=== PATIENT | female | born 1975 | race Caucasian/White ===

== ENCOUNTER 2025-03-04 09:15 | Outpatient (AMB) | payer OTHER, SELFPAY ==
[2025-03-04 09:30] VITALS: BP 118/82; PULSE 75; RESP 16; TEMP 36.8; O2SAT 100; BMI 26.3
--- NOTE | 2025-03-04 09:30 | AM.OFFWIN_ITS ---
Intake Vital Signs 03/04/25 09:30 Height 5 ft 4 in Weight 153 lb BMI 26.3 BP 118/82 Blood Pressure Location Lt brachial Position Sitting Respiration 16 Pulse 75 Pulse Source Pulse Oximeter Temp 98.3 F Temp Source Oral Pulse Oximetry (%) 100 Oxygen Delivery Method Room Air Intake Visit Reasons: EP-lt ear block Intake Note: Pt is here today c/o Lt ear block Allergies No Known Allergies Allergy (Verified 03/04/25 09:43) HPI HPI Comments History of Present Illness Details History of Present Illness - The patient is a 50-year-old female pr esenting with a sensation of blockage in the left ear x 3 days. - The patient associates the blockage se nsation with her routine of wetting her hair under a faucet daily, suspecting water build-up as a potential cause. - The blocked ear has impaired her heari ng to some degree compared to normal, with a noted awareness of reduced auditory perception on the left side. - The patient has attempted symptom юлия viation by self-administering pharmacy- bought medication aimed at drying out congestion, which was found to be unrelated to the issue of external ear wax. Treatment involved six doses of sudafed yesterday and 2 doses this morning, though it was clarified this would not affect the wax. Physical Exam General: Cooperative, healthy appearing, comfortable, no acute distress and well developed Orientation: Patient oriented x3 Limitations: No limitations Head: Normal to inspection Ears: Left EAC cerumen impaction, right EAC and TM normal Nose: Normal External nose present Face and sinus: Normal facial exam Eyes: Appearance normal, both eyes and all related structures Neck: Normal visual inspection and Yes full ROM Respiratory: Normal respiratory effort and able to speak in complete sentences. Skin: No rashes or lesions noted Neuro: Patient oriented x3 Extremities: Normal to inspection Review of Systems Const All systems reviewed & are unremarkable except as noted in HPI and below Physical Exam Vital Signs: Last Vital Signs Temp 98.3 F 03/04/25 09:30 Pulse 75 03/04/25 09:30 Resp 16 03/04/25 09:30 BP 118/82 03/04/25 09:30 Pulse Ox 100 03/04/25 09:30 Oxygen Delivery Method Room Air 03/04/25 09:30 BMI result Body Mass Index 26.3 Office Procedures Cerumen Removal From which ear canal was the cerumen removed: left Removal: irrigation Notes: patient tolerated procedure well, no complications and ear canal clear 00599-Wod Irrigation/Lavage Assessment & Plan Assessment & Plan (1) Left ear impacted cerumen: Code(s): H61.22 - Impacted cerumen, left ear Plan: Impacted cerumen in the left ear was identified and will be treated with a saline flushing procedure. The patient was informed about potential temporary dizziness during the irrigation and advised to communicate any discomfort. Additionally, the use of cerumenolytic drops, such as Debrox, was discussed as an option for future management and prevention. The patient is informed about the difference between managing earwax and inner ear congestion to ensure accurate self-care in the future. The patient understands the rationale for the treatment plan and alternatives provided. Patient was informed and verbally consented to the use of an ambient scribe for clinic note documentation during this visit. (2) Left acute otitis media: Code(s): H66.92 - Otitis media, unspecified, left ear Plan: After the cerumen was cleared, it was evident she had a left otitis media with erythema, inflammation and lots of landmarks on the left TM. Send prescription for amoxicillin to her pharmacy for 5 days. Medications: New amoxicillin 875 mg PO Q12H 10 tabs 0RF Coding Level of Care Code New Pt Level 4 (96801) Diagnoses Left ear impacted cerumen H61.22 Left acute otitis media H66.92 CPT Codes Office Procedure - CPT: 91124-Tyu Irrigation/Lavage ([id number])
== END 2025-03-04 10:47 | disposition home or self-care (01) ==
PROVIDERS: Visit Provider Physician Assistant
DX: H66.92 Otitis media, unspecified, left ear (principal); H61.22 Impacted cerumen, left ear

== ENCOUNTER → 2025-03-04 09:15 | Outpatient (BNVA) | payer OTHER, SELFPAY | PROVIDERS: Visit Provider Physician Assistant | DX: H61.22 Impacted cerumen, left ear (principal); H66.92 Otitis media, unspecified, left ear | CPT/HCPCS: 69209 ==

== ENCOUNTER 2025-07-17 15:04 | Outpatient (AMB) | payer OTHER, SELFPAY ==
--- NOTE | 2025-07-17 15:16 | A.OFFVIS_ITS ---
Vital Signs 07/17/25 15:17 Height 5 ft 4 in Weight 153 lb BMI 26.3 Intake Visit Reasons: Osorio. Bunio, Hammer toe, calluses Intake Note: Britney is a 50 year old female who presents today as a new patient for an evaluation of her bilateral bunions, hammertoes, and callouses and in grown toenails. Patient reports she is currently experiencing bilateral pain on her medial and lateral border of her hallux and in her heels. She mentions her pain has been going on for over 10 years. She states she used to see a residential assistant is [facility] where she was being treated for her in growns. She would like to get her nails trimmed today if possible . Allergies No Known Allergies Allergy (Verified 07/17/25 15:17) HPI Comments Details: The patient is a 50-year-old female with a PMH as seen below presenting with B/L foot pain, thickened lesions, thickened and dystrophic toenails, bunions, and hammertoes. The patient reports having ingrown toenails on both halluces, which have been a persistent issue since she can remember. She has previously undergone partial nail avulsions with chemical treatment at [facility] and another residential assistant in [place], [place], but the problem persists. The ingrown toenails cause significant pain when too thickened or elongated, affecting her sleep and daily activities, especially due to her frequent walking. The patient also suffers from calluses, which have been present for a long time and are exacerbated by her walking or pressure to the lesions. Bunions and hammertoes have been noted, with the patient reporting a history of wearing inappropriate footwear in her youth, contributing to these conditions. She has tried orthotics but found the shoe brand Barefoot more comfortable, which she believes have helped reduce her symptoms. The patient experiences heel pain which is aggravated by extensive walking. She has not been taken any medication for the pain but tries to massage the feet to alleviate discomfort. 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 She denies any recent pedal injuries. She denies any other pedal concerns. Denies any N/V/F/C. [facility] Medical History (Updated 07/18/25 @ 19:24 by MANSOOR Preciado Collapsed arches Other enthesopathy of ankle and tarsus Calcaneal spur of both feet Plantar fasciitis, bilateral Tinea unguium Nail dystrophy Intractable plantar keratosis Other specified epidermal thickening Pain in both feet Hammertoe, bilateral Hallux abducto valgus, bilateral Review of Systems Const Details: - Integumentary: Reports frequent ingrown toenails and calluses. Denies recent injuries despite a persistent bruise on the right heel. - Musculoskeletal: Reports bunions, hammertoes, and heel pain. - Neurological: Reports hyperhidrosis affecting feet, hands, and underarms. All systems reviewed & are unremarkable except as noted in HPI and below Physical Exam Vital Signs: BMI result Body Mass Index 26.3 Extrem Other: B/L LE Focused Physical Exam: Derm: Hyperkeratotic lesions noted to the plantar aspects bilaterally along the ball of the feet and heels. Thickened, dystrophic, and elongated toenails x10 with minimal subungual debris noted. Mild incurvation noted to B/L nail borders of B/L hallucal nails. Mild edema noted to the medial prominences of the 1st metatarsals B/L. No open lesions, abrasions, or wounds noted. No ecchymosis or discoloration noted. No clinical signs of infection. Skin supple and turgor intact. Vasc: DP/PT pulses palpable. CFT <3 secs. Temp gradient warm to warm. Pedal hair absent. No varicosities noted. Neuro: Protective sensations grossly intact. MSK: Pain on palpation to hyperkeratotic lesions. Mild pain on palpation to B/L nail borders of B/L hallucal nails. Rigid HAV noted B/L with hammer toes to toes 2-5. Overlapping noted to toes 1 and 2 bilaterally. Limited ROM of forefoot due to deviation of toes. Pain on palpation to the heels in the area of the medial and central calcaneal tubercles radiating along the arches. ROM of the ankles and hindfoot WNL. Pes cavus at rest with collapsed arches upon weightbearing. Antalgic gait noted unassisted. Office Procedures AMB Debridement/Avulsion Podia Details: Debrided the hyperkeratotic lesions B/L using a #15 blade with no incidents. Debrided toenails x10 using a sterile nail nipper with no incidents. 66795-Zaoyfwtfbrx of Nail 6+ 91117-Bdehapyntsy of Callus (5+) Procedure code (CPT) selection complete Results Reviewed Results Reviewed: Ordered B/L foot 3 views weightbearing xrays to be performed prior to next visit. Assessment & Plan Assessment & Plan (1) Other specified epidermal thickening: Code(s): L85.8 - Other specified epidermal thickening Category: Medical (2) Intractable plantar keratosis: Code(s): L84 - Corns and callosities Category: Medical (3) Nail dystrophy: Code(s): L60.3 - Nail dystrophy Category: Medical (4) Tinea unguium: Code(s): B35.1 - Tinea unguium Category: Medical (5) Plantar fasciitis, bilateral: Code(s): M72.2 - Plantar fascial fibromatosis Category: Medical (6) Calcaneal spur of both feet: Code(s): M77.31 - Calcaneal spur, right foot; M77.32 - Calcaneal spur, left foot Category: Medical (7) Other enthesopathy of ankle and tarsus: Code(s): M77.50 - Other enthesopathy of unspecified foot and ankle Category: Medical (8) Hallux abducto valgus, bilateral: Code(s): M20.11 - Hallux valgus (acquired), right foot; M20.12 - Hallux valgus (acquired), left foot Category: Medical (9) Hammertoe, bilateral: Code(s): M20.41 - Other hammer toe(s) (acquired), right foot; M20.42 - Other hammer toe(s) (acquired), left foot Category: Medical (10) Pain in both feet: Code(s): M79.671 - Pain in right foot; M79.672 - Pain in left foot Category: Medical (11) Collapsed arches: Code(s): M21.40 - Flat foot [pes planus] (acquired), unspecified foot Category: Medical Qualifiers: Laterality: bilateral Qualified Code(s): M21.41 - Flat foot [pes planus] (acquired), right foot; M21.42 - Flat foot [pes planus] (acquired), left foot Plan Patient was informed and verbally consented to the use of an ambient scribe for clinic note documentation during this visit. I discussed with the patient the management of her foot conditions, including the potential need for partial nail avulsion with chemical treatment for her recurrent ingrown toenails if she experiences continued to pain to nail borders. We reviewed the use of Epsom salt soaks for recurrent ingrown nails and emollients for callus management and the importance of proper footwear to reduce bunion and hammertoe symptoms. I explained the role of stretching exercises in m anaging plantar fasciitis and advised obtaining x-rays to assess foot structure for potential surgical intervention. Recommended toe sleeves and bunion sleeves. - Continue soaking feet in Epsom salt and warm water to alleviate mild ingrown toenails and prepare for potential partial nail avulsion. - Apply Vaseline or a thick cream to areas of hyperkeratotic lesiosn to slow their recurrence. - Consider using bunion and toe sleeves to reduce pressure and irritation from footwear. - Perform stretching exercises to manage plantar fasciitis and alleviate heel pain (provided patient with instructional form) - Obtain x-rays to evaluate foot structure and determine appropriate surgical options if necessary. Patient is to follow-up in one week to reassess symptoms and possibly perform PNAs if needed. Orders: Orders XR Foot Osorio 3V Today M20.11 - Hallux valgus (acquired), right foot, M20.12 - Hallux valgus (acquired), left foot, M20.41 - Other hammer toe(s) (acquired), right foot, M20.42 - Other hammer toe(s) (acquired), left foot, M79.671 - Pain in right foot, M79.672 - Pain in left foot AMB Debridement/Avulsion Podiatry 07/17/25 B35.1 - Tinea unguium, L60.3 - Nail dystrophy, L84 - Corns and callosities, L85.8 - Other specified epidermal thickening Coding Level of Care Code New Pt Level 4 (64723) Diagnoses Other specified epidermal thickening L85.8 Intractable plantar keratosis L84 Nail dystrophy L60.3 Tinea unguium B35.1 Plantar fasciitis, bilateral M72.2 Calcaneal spur of both feet M77.31; M77.32 Other enthesopathy of ankle and tarsus M77.50 Hallux abducto valgus, bilateral M20.11; M20.12 Hammertoe, bilateral M20.41; M20.42 Pain in both feet M79.671; M79.672 Pes planus of both feet M21.41; M21.42 Laterality: bilateral CPT Codes Skin Debridement - CPT: 12200-Xlupqmxzuxs of Nail 6+ ([id number]) Skin Debridement - CPT: 12456-Srgtfkzmvqk of Callus (5+) ([id number]) Time Spent (min) 75
[2025-07-17 15:17] VITALS: BMI 26.3
--- OUTSIDE RECORDS SUMMARY | 2025-07-17 17:10 | XMS_ITS | Encounter Summary ---
Author Organization [facility] Address [address] [place] [address] [place] [phone] Phone Care Team Providers Care Naval Engineer Name Role Phone Patsy Lee CNNegrita Unavailable [phone] Self-Referred, Patient Unavailable Unavailab Vero Moraes MD Primary Care Provider Sofia Seals Primary Care Provider Pcp, Not Required Primary Care Provider Unavaila ble Sofia Seals Primary Care Provider Encounter Details Date Type Department Care Team (Latest Contact Info) Description 05/21/2018 Transcribe Orders [facility] [address] [place] [address] Sole Bunn PA [address] 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 Not on sina e Not on file documented as of this encounter Plan of Treatment Upcoming Encounters Date Type Department Care Team (Late st Contact Info) Description 09/22/2025 1:30 PM EST Office Visit [facility] [address] [place] [address] Patsy Lee CNM [address], [address] [place] [address] [email or web address] 08/13/2026 2:00 PM EDT Office Visit [facility] [address] [place] [address] Sofia Seals [address] [place] [address] [email or web address] documented as of this encounter Results * (ABNORMAL) Urinalysis with sediment (05/21/2018 4:24 PM EDT) WBC 0-4(A) NONE SEEN /hpf [facility] RBC 6-10(A) NONE SEEN /hpf [facility] URINE EPITHELIAL 0-4(A) NONE SEEN [facility] MUCUS Trace(A) NONE SEEN /hpf [facility] BACTERIA Trace(A) NONE SEEN [facility] COLOR Yellow Yellow [facility] CLARITY Clear [facility] GLUCOSE Negative Negative [facility] BILI Negative Negative [facility] KETONES Negative Negative [facility] SPECIFIC GRAVITY <1.005 1.005 - 1.030 [facility] BLOOD 1+(A) Negative [facility] PH 6.0 5.0 - 8.0 [facility] Protein-UA Negative Negative [facility] NITRITE Negative Negative [facility] Leukocyte esterase, ur Trace(A) Negative [facility] Urine (Urine) 05/21/2018 4:2 4 PM EDT 05/21/2018 4:32 PM EDT us Sole KWONG URINE ORDERABLES Final Result [facility] [address] [place] [address] documented in this encounter Visit Diagnoses Diagnosis Microhematuria- Primary documented in this encounter Care Teams Naval Engineer Relationship Specialty Start Date End Date Vero Garcia MD [address] [place] [address] [email or web address] PCP - General Internal Medicine 05/07/18 01/22/25 Sofia Seals [address] [place] [address], [address] [place] [address] PCP - General Family Medicine 01/23/25 01/23/25 Pcp, Not Required [address] [place] [id number] PCP - General 05/17/25 05/31/25 Sofia Seals [address] [place] [address], [address] [place] [address] PCP - General Family Medicine 06/01/25 Patsy Lee CNM [address] [place] [address], [address] [place] [address] Obstetrics and Gynecology 10/09/17 Self-Referred, Patient 10/09/17 documented as of this encounter Additional Source Comments The information contained in this document represents components of the legal health record. It is not the complete legal health record.[facility]
--- OUTSIDE RECORDS SUMMARY | 2025-07-17 17:10 | XMS_ITS | Encounter Summary ---
Author Organization [facility] Address [address] [place] [address] [place] [address] Phone Care Team Providers Care Welding Machine Operator/Tender Name Role Phone Patsy Lee CNNegrita Unavailable Self-Referred, Patient Unavailable Unavailab Vero Moraes MD Primary Care Provider [phone] Sofia Seals Primary Care Provider Pcp, Not Required Primary Care Provider Unavaila ble Sofia Seals Primary Care Provider Encounter Details Date Type Department Care Team (Latest Contact Info) Description 05/07/2018 Transcribe Orders [facility] Laboratory [address] [place] [address] Sole Bunn PA [address] [place] [address] [email or web address] Routine general medical examination at a health care facility (Primary Dx); Migraine without status migrainosus, not intractable, unspecified migraine type; Fatigue, unspecified type Social History Tobacco Use Types Packs/Day Years [...] Industry Job Start Date Job End Date [place] at [employer] Not on file Not on sina e Not on file documented as of this encounter Plan of Treatment Upcoming Encounters Date Type Department Care Team (Late st Contact Info) Description 09/22/2025 1:30 PM EST Office Visit [facility] [address] [place] [address] Patsy Lee, SADIE [address] [facility], [address] [place] [address] [email or web address] 08/13/2026 2:00 PM EDT Office Visit [facility] Family Medicine [address] [place] [address] Sofia Seals [address] [facility], [address] [place] [address] [email or web address] documented as of this encounter Results * (ABNORMAL) Urinalysis with sediment (05/07/2018 7:35 AM EDT) WBC 5-10(A) NONE SEEN /hpf [facility] RBC 3-5(A) NONE SEEN /hpf [facility] URINE EPITHELIAL 21-49(A) NONE SEEN [facility] MUCUS 2+(A) NONE SEEN /hpf [facility] BACTERIA 1+(A) NONE SEEN [facility] CRYSTALS 2+ [facility] Comment:AMORPHOUS COLOR Yellow Yellow [facility] CLARITY Clear [facility] GLUCOSE Negative Negative [facility] BILI Negative Negative [facility] KETONES Trace(A) Negative [facility] SPECIFIC GRAVITY 1.025 1.005 - 1.030 [facility] BLOOD 3+(A) Negative [facility] PH 6.0 5.0 - 8.0 [facility] Protein-UA 1+(A) Negative [facility] NITRITE Negative Negative [facility] Leukocyte esterase, ur 1+(A) Negative [facility] Urine (Urine) 05/07/2018 7:3 5 AM EDT 05/07/2018 7:38 AM EDT us Sole KWONG URINE ORDERABLES Final Result Performing Organization Address City/[facility]/ZIP Co de Phone Number [address] [address] * TSH with reflex (05/07/2018 7:35 AM EDT) TSH 1.34 0.27 - 4.20 uIU/mL [facility] Blood 05/07/2018 7:35 AM EDT 05/07/2018 7:37 AM EDT us Sole KWONG LAB BLOOD ORDERABLES Final Resu lt Performing Organization Address [facility] Co de Phone Number [address] [address] * (ABNORMAL) Lipid panel (05/07/2018 7:35 AM EDT) HDL 75 mg/dL [facility] Comment: Interpretation: Risk Level Females Decreased >55mg/dL Average 50-55 mg/dL Increased <50 mg/dL CHOLESTEROL 200 0 - 240 mg/dL [facility] TRIGLYCERIDES 109 30 - 160 mg/dL [facility] LDL 103 50 - 129 mg/dL [facility] Comment: LDL levels in terms of risk for coronary heart disease: <100 mg/dL: Optimal 100-129 mg/dL: Near or above optimal 130-159 mg/dL: Borderline high 160-189 mg/dL: High >190 mg/dL: Very High CARDIAC RISK RATIO 2.7(L) 3.3 - 4.4 C [facility] Blood 05/07/2018 7:35 AM EDT 05/07/2018 7:37 AM EDT Sole KWONG LAB BLOOD ORDERABLES Final Resu lt Performing Organization Address City/[facility]/ZIP Co de Phone Number [address] [address] * Comprehensive metabolic panel (05/07/2018 7:35 AM EDT) SODIUM 140 133 - 146 mmol/L [facility] POTASSIUM 3.8 3.3 - 5.1 mmol/L [facility] CHLORIDE 100 96 - 108 mmol/L [facility] CO2 28 21 - 35 mmol/L [facility] BUN 10 6 - 19 mg/dL [facility] CREATININE 0.50 0.5 - 1.5 mg/dL [facility] GLUCOSE 82 70 - 99 mg/dL [facility] ALBUMIN 4.4 3.9 - 4.8 g/dL [facility] TOTAL PROTEIN 7.7 6.5 - 8.0 g/dL [facility] CALCIUM 9.6 8.4 - 10.3 mg/dL [facility] ALKALINE PHOSPHATASE 52 39 - 117 U/L [facility] TOTAL BILIRUBIN 0.5 0.0 - 1.2 mg/dL [facility] AST 17 0 - 37 U/L [facility] ALT 17 0 - 40 U/L [facility] GLOBULIN 3.3 1 - 4.8 g/dL [facility] EGFR 119 >59 mL/min/1.7 3m2 [facility] Comment:If patient is black, multiply result by 1.159. Estimated glomerular filtration rate calculated using the CKD-EPI equation. ANION GAP 16 10 - 20 mmol/L [facility] Blood 05/07/2018 7:35 AM EDT 05/07/2018 7:37 AM EDT us Sole KWONG LAB BLOOD ORDERABLES Final Resu lt [facility] [address] [place] [address] * (ABNORMAL) CBC and differential (05/07/2018 7:35 AM EDT) WBC 10.08 3.40 - 11.20 K/uL [facility] RBC 4.58 3.80 - 4.80 M/uL [facility] HGB 14.4 12.0 - 15.0 g/dL [facility] HCT 43.2 36.0 - 46.0 % [facility] PLT 217 130 - 400 K/uL [facility] MCV 94.3 79.0 - 98.0 fL [facility] MCH 31.4 27.0 - 34.8 pg [facility] MCHC 33.3 31.5 - 36.0 g/dL [facility] RDW 12.4 10.8 - 14.6 % [facility] MPV 10.4 9.4 - 12.4 fl [facility] NRBC 0.00 /100 WBCs [facility] ABSOLUTE NRBC 0.00 K/uL [facility] DIFF METHOD Auto [facility] NEUTS 61.9 45.30 - 77.70 % [facility] LYMPHS 28.9 12.30 - 39.70 % [facility] MONOS 7.2 4.10 - 12.80 % [facility] EOS 1.4 0 - 7.2 % [facility] BASOS 0.3 0 - 2.80 % [facility] Granulocytes, immature (%) 0.3 0.0 - 0.9 % [facility] ABSOLUTE NEUTS 6.24 1.40 - 7.70 K/uL [facility] ABSOLUTE LYMPHS 2.91 0.60 - 3.20 K/uL [facility] ABSOLUTE MONOS 0.73(H) 0.11 - 0.59 K/uL [facility] ABSOLUTE EOS 0.14 0.01 - 0.50 K/uL [facility] ABSOLUTE BASOS 0.03 0.00 - 0.08 K/uL [facility] Granulocytes, immature 0.03 0.00 - 0.05 K/uL [facility] Blood 05/07/2018 7:35 AM EDT 05/07/2018 7:37 AM EDT us Sole KWONG LAB BLOOD ORDERABLES Final Resu lt [facility] [address] [place] [address] documented in this encounter Visit Diagnoses Diagnosis Routine general medical examination at a health care facility- Primary Migraine without status migrainosus, not intractable, unspecified migraine type Fatigue, unspecified type documented in this encounter Care Teams Welding Machine Operator/Tender Relationship Specialty Start Date End Date Vero Garcia MD [address] [place] [address] [email or web address] PCP - General Internal Medicine 05/07/18 01/22/25 Sofia Seals [address] [place] [address], [address] [place] [address] [email or web address] PCP - General Family Medicine 01/23/25 01/23/25 Pcp, Not Required [address] [place] [address] PCP - General 05/17/25 05/31/25 Sofia Seals [address] [place] [address], [address] [place] [address] [email or web address] PCP - General Family Medicine 06/01/25 Patsy Lee CNM [address] [place] [address], [address] [place] [address] [email or web address] Obstetrics and Gynecology 10/09/17 Self-Referred, Patient 10/09/17 documented as of this encounter Additional Source Comments The information contained in this document represents components of the legal health record. It is not the complete legal health record.[facility]
--- OUTSIDE RECORDS SUMMARY | 2025-07-17 17:11 | XMS_ITS | Encounter Summary ---
Author Organization [facility] Address [address] [place] [address] Phone Care Team Providers Care Laborer Steel Handling Name Role Phone Patsy Lee CNNegrita Unavailable [phone] Self-Referred, Patient Unavailable Unavailab Vero Moraes MD Primary Care Provider [phone] Sofia Seals Primary Care Provider Pcp, Not Required Primary Care Provider Unavaila Sofia May Primary Care Provider Encounter Details Date Type Department Care Team (Late st Contact Info) Description 09/03/2020 Ancillary Orders Virtual Department [address] [place] [address] Vero Garcia MD [address] [place] [address] [email or web address] Breast screening Social History Tobacco Use Types Packs/Day Years Used Date Smoking Tobacco: Never Smokeless Tobacco: Never Alcohol Use Standard Drinks/Week Comments Yes 0 (1 standard drink = 0.6 oz pur e alcohol) rare Comments No Sex and Gender Information Value Date Recorded Sex Assigned at Female 10/26/2017 9:35 AM EST Legal Sex Female 4:37 PM EST Gender Identity Female 10/26/2017 9:35 AM EST Sexual Orientation Straight 10/26/2017 9: 35 AM EST Occupation Industry Job Start Date Job End Date [employer] Not on file Not on file Not on fi le documented as of this encounter Plan of Treatment Upcoming Encounters Date Type Department Care Team (Late st Contact Info) Description 09/22/2025 1:30 PM EST Office Visit [facility] [address] [place] [address] Patsy Lee CNM 22 [facility], [address] [place] [address] 08/13/2026 2:00 PM EDT Office Visit [facility] [place] [facility] [address] [place] [address] Sofia Seals 22 [facility], [address] [place] [address] [email or web address] documented as of this encounter Results * BI MAMMOGRAM SCREENING WITH TOMOSYNTHESIS WITH CAD (BILATERAL) (11/16/2020 4:24 PM EST) Anatomical Region Laterality Modality Breast Left, Breast Right, Breast Bilateral Bila teral Mammography 11/16/2020 7:01 PM EST Impressions 11/16/2020 7:03 PM EST BILATERAL BREASTS: Negative, no evidence of malignancy. Normal interval follow- up is recommended in 12 months. Bi-RADS: BI-RADS CATEGORY: 1 - Negative. DENSITY: There are scattered fibroglandular densities. Narrative 11/16/2020 7:03 PM EST STUDY: Bilateral screening mammography with tomosynthesis and CAD TECHNIQUE: Bilateral full-field digital screening mammography is obtained and read in conjunction with computer-aided detection. Tomosynthesis as well as 2-D C view imaging were obtained. COMPARISON: Comparison made to multiple prior, most recent October 11, 2019, and most remote August 16, 2015. BREAST COMPOSITION: There are scattered areas of fibroglandular density BILATERAL BREASTS: No significant masses, suspicious calcifications or other abnormalities are seen. Procedure Note Ladonna Cabrales MD - 11/16/2020 STUDY: Bilateral screening mammography with tomosynthesis and CAD TECHNIQUE: Bilateral full-field digital screening mammography is obtainedand read in conjunction with computer-aided detection. Tomosynthesis aswell as 2-D C view imaging were obtained. COMPARISON: Comparison made to multiple prior, most recent September, and most remote August 16, 2015. BREAST COMPOSITION: There are scattered areas of fibroglandulardensity BILATERAL BREASTS: No significant masses, suspicious calcifications orother abnormalities are seen. IMPRESSION: BILATERAL BREASTS: Negative, no evidence of malignancy. Normal intervalfollow-up is recommended in 12 months. Bi-RADS: BI-RADS CATEGORY: 1 - Negative. DENSITY: There are scattered fibroglandular densities. Vero Garcia MD IMG MG EXAMS Final Resul t documented in this encounter Visit Diagnoses Diagnosis Breast screening Breast screening, unspecified Breast screening Breast screening, unspecified documented in this encounter Care Teams Laborer Steel Handling Relationship Specialty Start Date End Date Vero Garcia MD [address] [place] [address] PCP - General Internal Medicine 05/07/18 01/22/25 Sofia Seals [address] [place] [address], [address] [place] [address] PCP - General Family Medicine 01/23/25 01/23/25 Pcp, Not Required [address] [place] [address] PCP - General 05/17/25 05/31/25 Sofia Seals [address] [place] [address], [address] [place] [address] PCP - General Family Medicine 06/01/25 Patsy Lee CNM [address] [place] [address], [address] [place] [address] [email or web address] Obstetrics and Gynecology 10/09/17 Self-Referred, Patient 10/09/17 documented as of this encounter Additional Source Comments The information contained in this document represents components of the legal health record. It is not the complete legal health record.[facility]
--- OUTSIDE RECORDS SUMMARY | 2025-07-17 17:11 | XMS_ITS | Encounter Summary ---
Author Organization [facility] Address [address] [place] [address] Phone Care Team Providers Care Compounder Flavorings Name Role Phone Patsy Lee CNM Unavailable [phone] Self-Referred, Patient Unavailable Unavailab Vero Moraes MD Primary Care Provider Sofia Seals Primary Care Provider Pcp, Not Required Primary Care Provider Unavaila ble Sofia Seals Primary Care Provider Encounter Details Date Type Department Care Team (Late st Contact Info) Description 09/09/2022 Procedure Pass [address] [address] Social History Tobacco Use Types Packs/Day Years Used Date Smoking Tobacco: Never Smokeless Tobacco: Never Alcohol Use Standard Drinks/Week Comments Not Currently 0 (1 standard drink = 0.6 oz [...] Description 09/22/2025 1:30 PM EST Office Visit [facility]ery [address] [place] [address] [place] [address] Patsy Lee CNM [address] [place] [address], [address] [place] [address] 08/13/2026 2:00 PM EDT Office Visit [address] [address] Sofia Seals [address] [place] [address], [address] [place] [address] [email or web address] documented as of this encounter Visit Diagnoses Not on filedocumented in this encounter Care Teams Compounder Flavorings Relationship Specialty Start Date End Date Vero Garcia MD [address] [place] [address] PCP - General Internal Medicine 05/07/18 01/22/25 Sofia Seals [address] [place] [address], [address] [place] [address] PCP - General Family Medicine 01/23/25 01/23/25 Pcp, Not Required [address] [place] [address] PCP - General 05/17/25 05/31/25 Sofia Seals [address] [place] [address], [address] [place] [address] PCP - General Family Medicine 06/01/25 Patsy Lee CNM [address] [place] [address], [address] [place] [address] Obstetrics and Gynecology 10/09/17 Self-Referred, Patient 12/22/17 documented as of this encounter Additional Source Comments The information contained in this document represents components of the legal health record. It is not the complete legal health record.[facility]
--- OUTSIDE RECORDS SUMMARY | 2025-07-17 17:11 | XMS_ITS | Encounter Summary ---
Author Organization [facility] Address [address] [place] [address] [place] [address] Phone Care Team Providers Care Material Loader Name Role Phone Patsy Lee CNNegrita Unavailable [phone] Self-Referred, Patient Unavailable Unavailab Vero Moraes MD Primary Care Provider [phone] Sofia Seals Primary Care Provider [phone] Pcp, Not Required Primary Care Provider Unavaila ble Sofia Seals Primary Care Provider Encounter Details Date Type Department Care Team (Late st Contact Info) Description 08/15/2024 Procedure Pass [facility], [address] [address] Social History Tobacco Use Types Packs/Day Years Used Date Smoking Tobacco: Never Smokeless Tobacco: Never Alcohol Use Standard Drinks/Week Comments Not Currently 0 (1 standard drink = 0.6 oz pur e alcohol) rare Education Answer Date Recorded Are you interested in more education? Not on sina e 02/13/2023 Are you concerned about learning? Not on file 02/13/2023 No 02/13/2023 No 02/13/2023 Digital Access Answer Date Recorded No 03/16/2023 No 03/16/2023 Reliable internet access at home? Not on file 03/16/2023 Device with a working camera? Not on file Intimate Partner Violence Answer Date R ecorded Are you denied basic needs s uch as food, clothing, or medical care? No 06/15/2024 In the past 12 months have y ou been in a relationship with a person who hurts, threatens, or tries to control you? No 06/15/2024 Are you denied basic needs s uch as food, clothing, or medical care? No 06/15/2024 In the past 12 months have y ou been in a relationship with a person who hurts, threatens, or tries to control you? No 06/15/2024 Comments No Sex and Gender Information Value [...] Description 09/22/2025 1:30 PM EST Office Visit [facility] [address] [place] [address] [place] [address] Patsy Lee CNM [address] [place] [address], [address] [place] [address] 08/13/2026 2:00 PM EDT Office Visit [facility] [address] [place] [address] Sofia Seals [address] [place] [address], [address] [place] [address] [email or web address] documented as of this encounter Visit Diagnoses Not on filedocumented in this encounter Care Teams Material Loader Relationship Specialty Start Date End Date Vero Garcia MD [address] [place] [address] PCP - General Internal Medicine 05/07/18 01/22/25 Sofia Seals [address] [place] [address], [address] [place] [address] [email or web address] PCP - General Family Medicine 01/23/25 01/23/25 Pcp, Not Required [address] [place] [address] PCP - General 05/17/25 05/31/25 Sofia Seals [address] [place] [address], [address] [place] [address] PCP - General Family Medicine 06/01/25 Patsy Lee CNM [address] [place] [address], [address] [place] [address] [email or web address] Obstetrics and Gynecology 10/09/17 Self-Referred, Patient 10/09/17 documented as of this encounter Additional Source Comments The information contained in this document represents components of the legal health record. It is not the complete legal health record.[facility]
--- OUTSIDE RECORDS SUMMARY | 2025-07-17 17:11 | XMS_ITS | Encounter Summary ---
Author Organization [facility] Address [address] [facility] [address] [place] [address] Phone Care Team Providers Care Engineering Administrator Name Role Phone Patsy Lee CNM Unavailable [phone] Self-Referred, Patient Unavailable Unavailab Vero Moraes MD Primary Care Provider [phone] Sofia Seals Primary Care Provider Pcp, Not Required Primary Care Provider Unavaila ble Sofia Seals Primary Care Provider Encounter Details Date Type Department Care Team (Late st Contact Info) Description 07/25/2019 Ancillary Orders [facility] [address] [place] [address] [place] [address] Patsy Lee CNM [address] [facility], [address] [place] [address] [email or web address] Social History Tobacco Use Types Packs/Day Years [...] Office Visit [facility] [address] [place] [address] [place] [address] Patsy Lee CNM [address] [place] [address], [address] [place] [address] 08/13/2026 2:00 PM EDT Office Visit [facility] [address] [place] [address] Sofia Seals [address] [place] [address], [address] [place] [address] [email or web address] documented as of this encounter Visit Diagnoses Not on filedocumented in this encounter Care Teams Engineering Administrator Relationship Specialty Start Date End Date Vero Garcia MD [address] [place] [address] PCP - General Internal Medicine 05/07/18 01/22/25 Sofia Seals [address] [place] [address], [address] [place] [address] PCP - General Family Medicine 01/23/25 01/23/25 Pcp, Not Required [address] [place] [address] PCP - General 05/17/25 05/31/25 Sofia Seals [address] [place] [address], [address] [place] [address] PCP - General Family Medicine 06/01/25 Patsy Lee CNM [address] [place] [address], [address] [place], [place] [address] [email or web address] Obstetrics and Gynecology 10/09/17 Self-Referred, Patient 10/09/17 documented as of this encounter Additional Source Comments The information contained in this document represents components of the legal health record. It is not the complete legal health record.[facility]
--- OUTSIDE RECORDS SUMMARY | 2025-07-17 17:11 | XMS_ITS | Encounter Summary ---
Author Organization [facility] Address [address] [place] [address] Phone Care Team Providers Care Ad Taker Name Role Phone Patsy Lee CNM Unavailable [phone] Self-Referred, Patient Unavailable Unavailab Vero Moraes MD Primary Care Provider [phone] Sofia Seals Primary Care Provider Pcp, Not Required Primary Care Provider Unavaila ble Sofia Seals Primary Care Provider Encounter Details Date Type Department Care Team (Late st Contact Info) Description 02/21/2022 Procedure Pass [facility] Admitting Dept Virtual Department [address] [place] [address] Social History Tobacco Use Types Packs/Day Years [...] on file Not on file Not on le documented as of this encounter Plan of Treatment Upcoming Encounters Date Type Department Care Team (Late Contact Info) Description 09/22/2025 1:30 PM EST Office Visit [facility] [address] [place] [address] Patsy Lee CNM [address] [place] [address], [address] [place] [address] 08/13/2026 2:00 PM EDT Office Visit [address] [address] Sofia Seals [address] [place] [address], [address] [place] [address] [email or web address] documented as of this encounter Visit Diagnoses Not on filedocumented in this encounter Care Teams Ad Taker Relationship Specialty Start Date End Date Vero Garcia MD [address] [place] [address] PCP - General Internal Medicine 05/07/18 01/22/25 Sofia Seals [address] [place] [address], [address] [place] [address] PCP - General Family Medicine 01/23/25 01/23/25 Pcp, Not Required [address] [place] [address] PCP - General 05/17/25 05/31/25 Sofia Seals [address] [place] [address], [address] [place] [address] PCP - General Family Medicine 06/01/25 Patsy Lee CNM [address] [place] [address], [address] [place] [address] Obstetrics and Gynecology 10/09/17 Self-Referred, Patient 10/09/17 documented as of this encounter Additional Source Comments The information contained in this document represents components of the legal health record. It is not the complete legal health record.[facility]
--- OUTSIDE RECORDS SUMMARY | 2025-07-17 17:11 | XMS_ITS | Encounter Summary ---
Author Organization [facility] Address [address] [place] [address] Phone Care Team Providers Care Educational Recruiter Name Role Phone Patsy Lee CNM Unavailable [phone] Self-Referred, Patient Unavailable Unavailab Vero Moraes MD Primary Care Provider Sofia Seals Primary Care Provider Pcp, Not Required Primary Care Provider Unavaila ble Sofia Seals Primary Care Provider [phone] Encounter Details Date Type Department Care Team (Late st Contact Info) Description 09/10/2021 Procedure Pass [address] [address] Social History Tobacco Use Types Packs/Day Years [...] Description 09/22/2025 1:30 PM EST Office Visit [facility]ery [address] [place] [address] [place] [address] Patsy Lee CNM [address] [place] [address], [address] [place] [address] 08/13/2026 2:00 PM EDT Office Visit [address] [address] Sofia Seals [address] [place] [address], [address] [place] [address] [email or web address] documented as of this encounter Visit Diagnoses Not on filedocumented in this encounter Care Teams Educational Recruiter Relationship Specialty Start Date End Date Vero Garcia MD [address] [place] [address] PCP - General Internal Medicine 05/07/18 01/22/25 Sofia Seals [address] [place] [address], [address] [place] [address] PCP - General Family Medicine 01/23/25 01/23/25 Pcp, Not Required [address] [place] [address] PCP - General 05/17/25 05/31/25 Sofia Seals [address] [place] [address], [address] [place] [address] PCP - General Family Medicine 06/01/25 Patsy Lee CNM [address] [place] [address], [address] [place] [address] Obstetrics and Gynecology 10/09/17 Self-Referred, Patient 10/09/17 documented as of this encounter Additional Source Comments The information contained in this document represents components of the legal health record. It is not the complete legal health record.[facility]
--- OUTSIDE RECORDS SUMMARY | 2025-07-17 17:11 | XMS_ITS | Encounter Summary ---
Author Organization [facility] Address [address] [facility] [address] [place] [address] Phone Care Team Providers Care Pallet Repairer Name Role Phone Pcp, Unknown Primary Care Provider Unavailabl Patsy Soto CNM Unavailable [phone] Self-Referred, Patient Unavailable Unavailab Vero Moraes MD Primary Care Provider [phone] Sofia Seals Primary Care Provider Pcp, Not Required Primary Care Provider Unavaila ble Sofia Seals Primary Care Provider Encounter Details Date Type Department Care Team (Late st Contact Info) Description 10/06/2017 Ancillary Orders [facility] [address] [place] [address] [place] [address] Patsy Lee, CNNegrita [address] [facility], [address] [place] [address] [email or web address] Screening breast examination Social History Tobacco Use Types Packs/Day Years Used Date Smoking Tobacco: Never Smokeless Tobacco: Never Alcohol Use Standard Drinks/Week Comments Yes 0 (1 standard drink = 0.6 oz pur e alcohol) Comments Unknown Sex and Gender Information Value Date Recorded Sex Assigned at Female 10/26/2017 9:35 AM EST Legal Sex Female 4:37 PM EST Gender Identity Female 10/26/2017 9:35 AM EST Sexual Orientation Straight 10/26/2017 9: 35 AM EST 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 Not on file Not on file documented as of this encounter Plan of Treatment Upcoming Encounters Date Type Department Care Team (Late st Contact Info) Description 09/22/2025 1:30 PM EST Office Visit [facility] [address] [place] [address] [place] [address] Patsy Lee CNM [address] [facility], [address] [place] [address] 08/13/2026 2:00 PM EDT Office Visit [facility] [place] [facility] [address] [place] [address] [place] [address] Sofia Seals [address] [facility] [place] [address] [email or web address] documented as of this encounter Results * BI MAMMOGRAM SCREENING WITH TOMOSYNTHESIS WITH CAD (BILATERAL) (10/09/2017 11:39 AM EST) Anatomical Region Laterality Modality Breast Left, Breast Right, Breast Bilateral Bila teral Mammography 10/09/2017 1:03 PM EST Impressions 10/09/2017 1:07 PM EST No mammographic evidence of malignancy. BI-RADS CATEGORY: 1 - Negative. DENSITY: There are scattered fibroglandular densities. POS - [id number] Narrative 10/09/2017 1:07 PM EST Standard digital full-field 2-D C view and two-plane tomographic imaging was performed and compared with multiple prior studies, most recently 09/09/2016, with utilization of computer-aided detection. The breasts are composed of scattered fibroglandular densities. The stromal markings are essentially unchanged in overall appearance and distribution. No dominant spiculated mass, suspicious clustered microcalcifications, or focal zone of pathologic skin thickening or retraction are noted to have arisen in the interim. Procedure Note Loi Justice MD - 10/09/2017 Standard digital full-field 2-D C view and two-plane tomographic imagingwas performed and compared with multiple prior studies, most /22/2016, with utilization of computer-aided detection. The breasts are composed of scattered fibroglandular densities. Thestromal markings are essentially unchanged in overall appearance anddistribution. No dominant spiculated mass, suspicious clusteredmicrocalcifications, or focal zone of pathologic skin thickening orretraction are noted to have arisen in the interim. IMPRESSION: No mammographic evidence of malignancy. BI-RADS CATEGORY: 1 - Negative. DENSITY: There are scattered fibroglandular densities. POS - [id number] us Patsy Lee CNM IMG MG EXAMS Final Result documented in this encounter Visit Diagnoses Diagnosis Screening breast examination Other screening breast examination Screening breast examination Other screening breast examination documented in this encounter Care Teams Pallet Repairer Relationship Specialty Start Date End Date Pcp, Unknown PCP - General 08/26/17 05/06/18 Vero Garcia MD [address] [place] [phone] [email or web address] PCP - General Internal Medicine 05/07/18 01/22/25 Sofia Seals [address] [place] [address], [address] [place] [address] PCP - General Family Medicine 01/23/25 01/23/25 Pcp, Not Required [address] [place] [address] PCP - General 05/17/25 05/31/25 Sofia Seals [address] [place] [address], [address] [place] [address] PCP - General Family Medicine 06/01/25 Patsy Lee CNM [address] [place] [address], [address] [place] [address] [email or web address] Obstetrics and Gynecology 10/09/17 Self-Referred, Patient 10/09/17 documented as of this encounter Additional Source Comments The information contained in this document represents components of the legal health record. It is not the complete legal health record.[facility]
--- OUTSIDE RECORDS SUMMARY | 2025-07-17 17:11 | XMS_ITS | Encounter Summary ---
Author Organization [facility] Address [address] [place] [address] [place] [address] Phone Care Team Providers Care Duct Installer Name Role Phone Patsy Lee CNNegrita Unavailable [phone] Self-Referred, Patient Unavailable Unavailab Vero Moraes MD Primary Care Provider Sofia Seals Primary Care Provider [phone] Pcp, Not Required Primary Care Provider Unavaila ble Sofia Seals Primary Care Provider Encounter Details Date Type Department Care Team (Latest Contact Info) Description 05/11/2018 Transcribe Orders [facility] [address] [place] [address] Sole Bunn PA [address] [place] [address] [email or web address] Microhematuria (Primary Dx) Social History Tobacco Use [...] Description 09/22/2025 1:30 PM EST Office Visit [facility]ery [address] [place] [address] Patsy Lee CNM [address] [facility], [address] [place] [address] [email or web address] 08/13/2026 2:00 PM EDT Office Visit [facility] [address] [place] [address] Sofia Seals [address] [facility], [address] [place] [address] [email or web address] documented as of this encounter Results * (ABNORMAL) Urinalysis with sediment (05/11/2018 5:03 PM EDT) WBC 0-4(A) NONE SEEN /hpf [facility] RBC 21-49(A) NONE SEEN /hpf [facility] URINE EPITHELIAL 5-10(A) NONE SEEN [facility] MUCUS Trace(A) NONE SEEN /hpf [facility] BACTERIA Trace(A) NONE SEEN [facility] COLOR Yellow Yellow [facility] CLARITY HAZY [facility] GLUCOSE Negative Negative [facility] BILI Negative Negative [facility] KETONES Negative Negative [facility] SPECIFIC GRAVITY <1.005 1.005 - 1.030 [facility] BLOOD 3+(A) Negative [facility] PH 5.5 5.0 - 8.0 [facility] Protein-UA Negative Negative [facility] NITRITE Negative Negative [facility] Leukocyte esterase, ur Negative Negative [facility] Urine (Urine) 05/11/2018 5:0 3 PM EDT 05/11/2018 5:08 PM EDT us Sole KWONG URINE ORDERABLES Final Result [facility] [address] [place] [address] * Urine culture (05/11/2018 5:03 PM EDT) Specimen Source/ Description URINE URINE URINE [facility] Special Requests None [facility] GRAM STAIN Few GRAM NEGATIVE RODS [facility] Culture/Test <10,000 colony forming units per ml [facility] Report Status 05/13/2018 FINAL [facility] Urine (Urine) 05/11/2018 5:0 3 PM EDT 05/11/2018 5:04 PM EDT us Sole KWONG MICROBIOLOGY - GENERAL ORDERABL ES Final Result [facility] [address] [place] [address] documented in this encounter Visit Diagnoses Diagnosis Microhematuria- Primary documented in this encounter Care Teams Duct Installer Relationship Specialty Start Date End Date Vero Garcia MD [address] [place] [address] PCP - General Internal Medicine 05/07/18 01/22/25 Sofia Seals [address] [place] [address], [address] [place] [address] PCP - General Family Medicine 01/23/25 01/23/25 Pcp, Not Required [address] [place] [address] PCP - General 05/17/25 05/31/25 Sofia Seals [address] [place] [address], [address] [place] [address] [email or web address] PCP - General Family Medicine 06/01/25 Patsy Lee CNM [address] [place] [address], [address] [place] [address] [email or web address] Obstetrics and Gynecology 10/09/17 Self-Referred, Patient 10/09/17 documented as of this encounter Additional Source Comments The information contained in this document represents components of the legal health record. It is not the complete legal health record.[facility]
--- OUTSIDE RECORDS SUMMARY | 2025-07-17 17:11 | XMS_ITS | Encounter Summary ---
Author Organization [facility] Address [address] [facility] [address] [place] [address] Phone Care Team Providers Care Boatbuilder Wood Name Role Phone Patsy Lee CNM Unavailable [phone] Self-Referred, Patient Unavailable Unavailab Vero Moraes MD Primary Care Provider Sofia Seals Primary Care Provider Pcp, Not Required Primary Care Provider Unavaila ble Sofia Seals Primary Care Provider Encounter Details Date Type Department Care Team (Late st Contact Info) Description 08/17/2018 Ancillary Orders [facility] [address] [place] [address] [place] [address] Patsy Lee CNM [address] [facility], [address] [place] [address] [email or web address] Breast screening Social History Tobacco Use Types [...] Visit [facility] [address] [place] [address] Patsy Lee CNM [address] [facility], [address] [place] [address] 08/13/2026 2:00 PM EDT Office Visit [facility] [place] [facility] [address] [place] [address] Sofia Seals [address] [facility], [address] [place] [address] [email or web address] documented as of this encounter Results * BI MAMMOGRAM SCREENING WITH TOMOSYNTHESIS WITH CAD (BILATERAL) (10/14/2018 10:09 AM EST) Anatomical Region Laterality Modality Breast Left, Breast Right, Breast Bilateral Bila teral Mammography 10/14/2018 12:4 1 PM EST Impressions 10/14/2018 12:42 PM EST No mammographic evidence of malignancy. RECOMMENDED FOLLOWUP: Routine screening mammography is recommended, as clinically appropriate. The results will be sent to the patient. BI-RADS CATEGORY: 1 - Negative. BREAST DENSITY: There are scattered fibroglandular densities. POS - [id number] Narrative 10/14/2018 12:42 PM EST BI MAMMOGRAM SCREENING WITH TOMOSYNTHESIS WITH CAD (BILATERAL) HISTORY: Screening. COMPARISON: Prior studies dating back to 08/16/2015, most recently 10/09/2017. TECHNIQUE: Digital breast tomosynthesis was performed in CC and MLO projections. Reconstructed 2-D C-views generated from the tomosynthesis images. Images interpreted in conjunction with R-2 Image Base Filler computer-aided detection (CAD). FINDINGS: BREAST DENSITY: There are scattered fibroglandular densities. There are no suspicious masses, suspicious areas of architectural distortion or suspicious clusters of microcalcifications. Procedure Note Leonarda Zaragoza MD - 10/14/2018 BI MAMMOGRAM SCREENING WITH TOMOSYNTHESIS WITH CAD (BILATERAL) HISTORY: Screening. COMPARISON: Prior studies dating back to 08/16/2015, most [email or web address]/22/2017. TECHNIQUE: Digital breast tomosynthesis was performed in CC and MLOprojections. Reconstructed 2-D C-views generated from the tomosynthesisimages. Images interpreted in conjunction with R-2 Image Checkercomputer-aided detection (CAD). FINDINGS: BREAST DENSITY: There are scattered fibroglandular densities. There are no suspicious masses, suspicious areas of architecturaldistortion or suspicious clusters of microcalcifications. IMPRESSION: No mammographic evidence of malignancy. RECOMMENDED FOLLOWUP: Routine screening mammography is recommended, asclinically appropriate. The results will be sent to the patient. BI-RADS CATEGORY: 1 - Negative. BREAST DENSITY: There are scattered fibroglandular densities. POS - [id number] Patsy Lee CN IMG MG EXAMS Final Result documented in this encounter Visit Diagnoses Diagnosis Breast screening Breast screening, unspecified Breast screening Breast screening, unspecified documented in this encounter Care Teams Boatbuilder Wood Relationship Specialty Start Date End Date Vero Garcia MD [address] [place] [address] PCP - General Internal Medicine 05/07/18 01/22/25 Sofia Seals [address] [place] [address], [address] [place] [address] PCP - General Family Medicine 01/23/25 01/23/25 Pcp, Not Required [address] [place] [address] PCP - General 05/17/25 05/31/25 Sofia Seals [address] [place] [address], [address] [place] [address] PCP - General Family Medicine 06/01/25 Patsy Lee CNM [address] [place] [address], [address] [place] [address] [email or web address] Obstetrics and Gynecology 10/09/17 Self-Referred, Patient 10/09/17 documented as of this encounter Additional Source Comments The information contained in this document represents components of the legal health record. It is not the complete legal health record.[facility]
--- OUTSIDE RECORDS SUMMARY | 2025-07-17 17:11 | XMS_ITS | Encounter Summary ---
Author Organization [facility] Address [address] [place] [address] Phone Care Team Providers Care Matcher Operator Name Role Phone Patsy Lee CNM Unavailable [phone] Self-Referred, Patient Unavailable Unavailab Vero Moraes MD Primary Care Provider Sofia Seals Primary Care Provider Pcp, Not Required Primary Care Provider Unavaila Sofia May Primary Care Provider Encounter Details Date Type Department Care Team (Late st Contact Info) Description 09/03/2020 Procedure Pass [address] [address] Social History Tobacco Use Types Packs/Day Years [...] Description 09/22/2025 1:30 PM EST Office Visit [facility] [address] [place] [address] Patsy Lee CNM [address] [place] [address], [address] [place] [address] 08/13/2026 2:00 PM EDT Office Visit [address] [address] Sofia Seals [address] [place] [address], [address] [place] [address] [email or web address] documented as of this encounter Visit Diagnoses Not on filedocumented in this encounter Care Teams Matcher Operator Relationship Specialty Start Date End Date Vero Garcia MD [address] [place] [address] PCP - General Internal Medicine 05/07/18 01/22/25 Sofia Seals [address] [place] [address], [address] [place] [address] PCP - General Family Medicine 01/23/25 01/23/25 Pcp, Not Required [address] [place] [address] PCP - General 05/17/25 05/31/25 Sofia Seals [address] [place] [address], [address] [place] [address] PCP - General Family Medicine 06/01/25 Patsy Lee CNM [address] [place] [address], [address] [place] [address] Obstetrics and Gynecology 10/09/17 Self-Referred, Patient 10/09/17 documented as of this encounter Additional Source Comments The information contained in this document represents components of the legal health record. It is not the complete legal health record.[facility]
--- OUTSIDE RECORDS SUMMARY | 2025-07-17 17:11 | XMS_ITS | Encounter Summary ---
Author Organization [facility] Address [address] [place] [address] [place] [address] Phone Care Team Providers Care Iron Bender Name Role Phone Patsy Lee CNNegrita Unavailable [phone] Self-Referred, Patient Unavailable Unavailab Vero Moraes MD Primary Care Provider Sofia Seals Primary Care Provider Pcp, Not Required Primary Care Provider Unavaila ble Sofia Seals Primary Care Provider Encounter Details Date Type Department Care Team (Latest Contact Info) Description 05/19/2019 Transcribe Orders [facility] Laboratory [address] [place] [address] Sole Bunn PA [address] [place] [address] [email or web address] Shoulder pain, unspecified chronicity, unspecified laterality (Primary Dx); Microhematuria; Routine general medical examination at a health care facility Social History Tobacco Use Types Packs/Day Years [...] 09/22/2025 1:30 PM EST Office Visit [facility] [address] [place] [address] Patsy Lee, CNM [address] [facility], [address] [place] [address] [email or web address] 08/13/2026 2:00 PM EDT Office Visit [facility] [place] [facility] [address] [place] [address] Sofia Seals [address] [facility], [address] [place] [address] [email or web address] documented as of this encounter Results * Hepatitis C antibody, qualitative (05/19/2019 1:26 PM EDT) HCV NON-REACTIV E NON-REACTI VE [facility] Blood 05/19/2019 1:26 PM EDT 05/19/2019 1:28 PM EDT us Sole Blbrain PA LAB BLOOD ORDERABLES Final Resu lt Performing Organization Address City/[facility]/ZIP Co de Phone Number [address] [address] * Hepatitis B core antibody, total (05/19/2019 1:26 PM EDT) HEP B CORE AB, TOT NON-REACTI VE NON-REACTI VE [facility] Blood 05/19/2019 1:26 PM EDT 05/19/2019 1:28 PM EDT [facility] ORDER[facility]LES Final Resu lt [address] [address] * Hepatitis B surface antigen (05/19/2019 1:26 PM EDT) HBV SURFACE ANTIGEN NON-REACTI VE NON-REACTI VE [facility] Blood 05/19/2019 1:26 PM EDT 05/19/2019 1:28 PM EDT Sole Oni DC LAB BLOOD ORDERABLES Final Resu lt [address] [address] * Hepatitis B surface antibody (05/19/2019 1:26 PM EDT) HBV SURFACE ANTIBODY Negative [facility] Blood 05/19/2019 1:26 PM EDT 05/19/2019 1:28 PM EDT Sole Oni DC LAB BLOOD ORDERABLES Final Resu lt Performing Organization Address [facility] Co de Phone Number [address] [address] * LFTs (hepatic panel) (05/19/2019 1:26 PM EDT) ALKALINE PHOSPHATASE 61 39 - 117 U/L [facility] TOTAL BILIRUBIN 0.4 0.0 - 1.2 mg/dL [facility] DIRECT BILIRUBIN <0.2 0 - 0.3 mg/dL [facility] Bilirubin (Indirect) NOT CALCULATED 0 - 1.5 mg/dL [facility] AST 28 0 - 37 U/L [facility] ALT 36 0 - 40 U/L [facility] TOTAL PROTEIN 7.3 6.5 - 8.0 g/dL [facility] ALBUMIN 4.4 3.9 - 4.8 g/dL [facility] GLOBULIN 2.9 1 - 4.8 g/dL [facility] A/G Ratio 1.52 1.00 - 4.80 RATIO [facility] Blood 05/19/2019 1:26 PM EDT 05/19/2019 1:28 PM EDT us Sole Blume PA LAB BLOOD ORDERABLES Final Resu lt Performing Organization Address [facility]/ZIP Co de Phone Number [address] [address] * Sedimentation rate (ESR) (05/19/2019 1:17 PM EDT) ESR 2 0 - 20 mm/h [facility] Blood 05/19/2019 1:17 PM EDT 05/19/2019 1:20 PM EDT us Sole Blume PA LAB BLOOD ORDERABLES Final Resu lt Performing Organization Address [facility] Co de Phone Number [address] [address] * Rheumatoid factor (05/19/2019 1:17 PM EDT) RHEUMATOID FACTOR <10.0 0.0 - 14.0 IU/ml [facility] Blood 05/19/2019 1:17 PM EDT 05/19/2019 1:20 PM EDT us Sole Blume PA LAB BLOOD ORDERABLES Final Resu lt Performing Organization Address [facility]/ZIP Co de Phone Number [address] [address] * C-Reactive Protein (05/19/2019 1:17 PM EDT) C REACTIVE PROTEIN <0.3 0.0 - 4.0 mg/L [facility] Blood 05/19/2019 1:17 PM EDT 05/19/2019 1:20 PM EDT us Sole Blume PA LAB BLOOD ORDERABLES Final Resu lt Performing Organization Address [facility] Co de Phone Number [address] [place] [address] * TSH (05/19/2019 1:17 PM EDT) TSH 1.53 0.27 - 4.20 uIU/mL [facility] Blood 05/19/2019 1:17 PM EDT 05/19/2019 1:20 PM EDT us Sole KWONG LAB BLOOD ORDERABLES Final Resu lt [address] [address] documented in this encounter Visit Diagnoses Diagnosis Shoulder pain, unspecified chronicity, unspecified laterality- Primary Microhematuria Routine general medical examination at a health care facility documented in this encounter Care Teams Iron Bender Relationship Specialty Start Date End Date Vero Garcia MD [address] [place] [address] PCP - General Internal Medicine 05/07/18 01/22/25 Sofia Seals [address] [place] [address], [address] [place] [address] PCP - General Family Medicine 01/23/25 01/23/25 Pcp, Not Required [address] [place] [address] PCP - General 05/17/25 05/31/25 Sofia Seals [address] [place] [address], [address] [place] [address] PCP - General Family Medicine 06/01/25 Patsy Lee CNM [address] [place] [address], [address] [place] [address] Obstetrics and Gynecology 10/09/17 Self-Referred, Patient 10/09/17 documented as of this encounter Additional Source Comments The information contained in this document represents components of the legal health record. It is not the complete legal health record.[facility]
--- OUTSIDE RECORDS SUMMARY | 2025-07-17 17:11 | XMS_ITS | Patient Health Record ---
Author Organization [facility] Address [address] [facility] [place] [address] Care Team Providers Care Barrel Rifler Hook Name Role Phone Sofia Andersen MD Primary Care Provider Un available Black, Nisha Unavailable [phone] Allergies Allergen (clinical drug ingredient) Drug/Non Drug Allergy documented on EMR Reaction Allergy Type Onset Date Status sulfamethoxazole / trimethoprim Bactrim Bad rash/itching Drug Allergy Active minocycline Minocycline Bad rash/itching Drug Allergy Active Reason For Referral No Information Medications Medication SIG (Take, Route, Frequency, Duration) Notes Start Date End Date Status Folic Acid Active Vitamin B12 Not-Taki ng Zinc Active Hair Vitamins Active Tri-Previfem Active Apple Cider Vinegar Orally Active Multi Vitamin Active Cinnamon Active Magnesium 250 MG Orally Act tracie Vitamin B12 1000 MCG 1 tablet Orally Onc e a day; Duration: 30 day(s) 05/11/2020 Active Vitamin A Active Probiotic Active Vitamin C Active Immunizations Vaccine Route Administration Date Status Comme nts COVID-19 Pfizer BioNTech Vaccine Unknown 11/17/2020 Administered Second Dose: 12/08/2020 Social History Tobacco Use: Social History Observation Description Date Details (start date - stop date) Never Smoker NA - NA Tobacco Use/Smoking Question Answer Notes Are you a: nonsmoker Additional Findings: Tobacco Non-User Current no n-smoker Alcohol Screen Question Answer Notes Did you have a drink containing alcohol in the p ast year? Yes Points 0 Tobacco use other than smoking: Question Answer Notes Are you an other tobacco user? 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) Active confirmed Problem PlantarFlexion o f metatarsal of left foot (M21.6X2) Active confirmed Encounters Encounter Location Date Provider Diagnosis [facility] [place] [address] [place] [address] 08/23/2024 Nisha Alvarez [facility] [place] [address] [place] [address] 06/29/2025 Nisha Alvarez Plan Of Treatment Pending Test Test Name Order Date [id number] Destruction, -14 06/21/2020 35402-Yfiy Destruction, 11-0109/27/2020 [id number]-Iwvg Destruction, 11-0112/10/2020 74652-Psqd Destruction, 11-0102/04/2021 [id number]-Lxzi Destruction, -03/29/2021 Insurance Providers Payer Name Payer Address Payer Phone Subscriber Number Group Number Insured Name Patient Relationship to Insured Coverage Start Date Coverage End Date [facility] re-[id number] [address] [address] [place] [id number] Britney Gan Self - patient is the insured Medical (General) History Medical History History ICD Code Headaches/Migraines Surgical History Surgery Date(Month/Year) Lumbar Microdiscectomy 04/07/2005 Eye Lasik Surgery
--- OUTSIDE RECORDS SUMMARY | 2025-07-17 17:11 | XMS_ITS | Encounter Summary ---
Author Organization [facility] Address [address] [place] [address] Phone Care Team Providers Care Yield Loss Inspector Name Role Phone Patsy Lee SANIYA Unavailable [phone] Self-Referred, Patient Unavailable Unavailab Vero Moraes MD Primary Care Provider Sofia Seals Primary Care Provider Pcp, Not Required Primary Care Provider Unavaila ble Sofia Seals Primary Care Provider [phone] Encounter Details Date Type Department Care Team (Late st Contact Info) Description 10/01/2023 Procedure Pass [facility], [address] [address] Social History Tobacco Use Types Packs/Day Years [...] with a working camera? Not on file Comments No Sex and Gender Information Value [...] Office Visit [facility] [address] [place] [address] [place] [address] Patsy Lee, SANIYA [address] [facility], [address] [place] [address] 08/13/2026 2:00 PM EDT Office Visit [facility] [address] [place] [address] Sofia Seals [address] [place] [address], [address] [place] [address] [email or web address] documented as of this encounter Visit Diagnoses Not on filedocumented in this encounter Care Teams Yield Loss Inspector Relationship Specialty Start Date End Date Vero Garcia MD [address] [place] [address] PCP - General Internal Medicine 05/07/18 01/22/25 Sofia Seals [address] [place] [address], [address] [place] [address] PCP - General Family Medicine 01/23/25 01/23/25 Pcp, Not Required [address] [place] [address] PCP - General 05/17/25 05/31/25 Sofia Seals [address] [place] [address], [address] [place] [address] [email or web address] PCP - General Family Medicine 06/01/25 Patsy Lee CNM [address] [place] [address], [facility] [address] [place] [address] [email or web address] Obstetrics and Gynecology 10/09/17 Self-Referred, Patient 10/09/17 documented as of this encounter Additional Source Comments The information contained in this document represents components of the legal health record. It is not the complete legal health record.[facility]
--- OUTSIDE RECORDS SUMMARY | 2025-07-17 17:11 | XMS_ITS | Encounter Summary ---
Author Organization [facility] Address [address] [facility] [address] [place] [address] Phone Care Team Providers Care Armhole Baster Jumpbasting Name Role Phone Patsy Lee CNM Unavailable [phone] Self-Referred, Patient Unavailable Unavailab Vero Moraes MD Primary Care Provider Sofia Seals Primary Care Provider Pcp, Not Required Primary Care Provider Unavaila Sofia May Primary Care Provider Encounter Details Date Type Department Care Team (Late st Contact Info) Description 07/25/2019 Ancillary Orders Virtual Department [address] [place] [address] Patsy Lee CNM [address] [facility], [facility] [address] [place] [address] [email or web address] Breast screening Social History Tobacco Use Types [...] 09/22/2025 1:30 PM EST Office Visit [facility] [address] [place] [address] Patsy Lee CNM [address] [facility], [address] [place] [address] 08/13/2026 2:00 PM EDT [facility] Visit [facility] [address] [place] [address] Sofia Seals [address] [facility], [address] [place] [address] [email or web address] documented as of this encounter Results * BI MAMMOGRAM SCREENING WITH TOMOSYNTHESIS WITH CAD (BILATERAL) (10/11/2019 12:19 PM EST) Anatomical Region Laterality Modality Breast Left, Breast Right, Breast Bilateral Bila teral Mammography 10/11/2019 1:08 PM EST Impressions 10/11/2019 1:11 PM EST Stable appearance relative to prior imaging. No findings suggestive of malignancy are seen. BI-RADS CATEGORY: 1 - Negative. DENSITY: There are scattered fibroglandular densities. POS - [id number] Narrative 10/11/2019 1:11 PM EST Full-field digital mammography is obtained with computer-aided detection. Comparison with prior imaging from October 14, 2018 is made with older imaging dating back as far as August 16, 2015 also reviewed. There is scattered fibroglandular density evident in the breasts. In addition to 2-D C view imaging, tomosynthesis images are obtained in two projections of each breast. No dominant soft tissue mass of concern, suspicious cluster of calcifications, significant interval skin changes, or architectural distortion is identified. Procedure Note Kole Peck MD - 10/11/2019 Full-field digital mammography is obtained with computer-aided detection.Comparison with prior imaging from October 14, 2018 is made with olderimaging dating back as far as August 16, 2015 also reviewed. There is scattered fibroglandular density evident in the breasts. Inaddition to 2-D C view imaging, tomosynthesis images are obtained in twoprojections of each breast. No dominant soft tissue mass of concern, suspicious cluster ofcalcifications, significant interval skin changes, or architecturaldistortion is identified. IMPRESSION: Stable appearance relative to prior imaging. No findings suggestive ofmalignancy are seen. BI-RADS CATEGORY: 1 - Negative. DENSITY: There are scattered fibroglandular densities. POS - [id number] Patsy Lee CNM IMG MG EXAMS Final Result documented in this encounter Visit Diagnoses Diagnosis Breast screening Breast screening, unspecified Breast screening Breast screening, unspecified documented in this encounter Care Teams Armhole Baster Jumpbasting Relationship Specialty Start Date End Date Vero Garcia MD [address] [place] [address] PCP - General Internal Medicine 05/07/18 01/22/25 Sofia Seals [address] [place] [address], [address] [place] [address] PCP - General Family Medicine 01/23/25 01/23/25 Pcp, Not Required [address] [place] [address] PCP - General 05/17/25 05/31/25 Sofia Seals [address] [place] [address], [address] [place] [address] PCP - General Family Medicine 06/01/25 Patsy Lee CNM [address] [place] [address], [address] [place] [address] [email or web address] Obstetrics and Gynecology 10/09/17 Self-Referred, Patient 10/09/17 documented as of this encounter Additional Source Comments The information contained in this document represents components of the legal health record. It is not the complete legal health record.[facility]
== END 2025-07-17 16:04 | disposition home or self-care (01) ==
LOC: HO.HPODS 15:04
PROVIDERS: Visit Provider Student in an Organized Health Care Education/Training Program
DX: L84 Corns and callosities (principal); L85.8 Other specified epidermal thickening; L60.3 Nail dystrophy; B35.1 Tinea unguium; M72.2 Plantar fascial fibromatosis; M77.31 Calcaneal spur, right foot; M77.32 Calcaneal spur, left foot; M77.50 Other enthesopathy of unspecified foot and ankle; M20.11 Hallux valgus (acquired), right foot; M20.12 Hallux valgus (acquired), left foot; M20.41 Other hammer toe(s) (acquired), right foot; M20.42 Other hammer toe(s) (acquired), left foot; M79.671 Pain in right foot; M79.672 Pain in left foot; M21.41 Flat foot [pes planus] (acquired), right foot; M21.42 Flat foot [pes planus] (acquired), left foot
CPT/HCPCS: 11057; 11721; 99203

== ENCOUNTER → 2025-07-17 15:04 | Outpatient (BNVA) | payer OTHER, SELFPAY | PROVIDERS: Visit Provider Student in an Organized Health Care Education/Training Program | DX: M20.11 Hallux valgus (acquired), right foot (principal); M20.12 Hallux valgus (acquired), left foot; M20.41 Other hammer toe(s) (acquired), right foot; M20.42 Other hammer toe(s) (acquired), left foot; M79.671 Pain in right foot; M79.672 Pain in left foot; L85.8 Other specified epidermal thickening; L84 Corns and callosities; L60.3 Nail dystrophy; B35.1 Tinea unguium; M72.2 Plantar fascial fibromatosis; M77.31 Calcaneal spur, right foot; M77.50 Other enthesopathy of unspecified foot and ankle | CPT/HCPCS: 11057 ==

== ENCOUNTER 2025-07-18 11:48 | Outpatient (REF) | payer OTHER, SELFPAY ==
--- NOTE | ~2025-07-18 | XR_ITS ---
Exam: XR FOOT 3 OR MORE VIEWS BILATERAL, bilateral foot x-rays TECHNIQUE: AP, OBL and lateral views lower extremity, bilateral feet INDICATION: M20.11 - Hallux valgus (acquired), right foot COMPARISON: None available. FINDINGS: RIGHT FOOT: There is mild first MTP joint narrowing with minimal subchondral sclerosis and small marginal osteophytes. Intermetatarsal angle: Angle between the first and second metatarsal measured 8 degrees. (wnl <10 degrees). Metatarsophalangeal angle: Angle between the first metatarsal and proximal phalanx measured 33 degrees. (wnl <15 degrees). Interphalangeal angle: Angle between the proximal and distal phalanx measured 9 degrees. (wnl <10 degrees). Sesamoid position: Station 1 LEFT FOOT: There is hallux valgus deformity with mild first MTP joint space narrowing and small marginal osteophytes. Intermetatarsal angle: Angle between the first and second metatarsal measured 7 degrees. (wnl <10 degrees). Metatarsophalangeal angle: Angle between the first metatarsal and proximal phalanx measured 28 degrees. (wnl <15 degrees). Interphalangeal angle: Angle between the proximal and distal phalanx measured 16 degrees. (wnl <10 degrees). 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 Jun-Jul 1984;5(2):92-103. Hallux valgus assessment: report of research committee of [employer]] Electronically signed by: Yaron Forrest MD 07/18/2025 01:30 PM EDT
--- OUTSIDE RECORDS SUMMARY | 2025-07-18 13:12 | XMS_ITS | Encounter Summary ---
Author Organization [facility] Address [address] [facility] [address] [place] [address] Phone Care Team Providers Care Lumber Buyer Name Role Phone Patsy Lee CNM Unavailable [phone] Self-Referred, Patient Unavailable Unavailab Vero Moraes MD Primary Care Provider [phone] Sofia Seals Primary Care Provider Pcp, Not Required Primary Care Provider Unavaila ble Sofia Seals Primary Care Provider Encounter Details Date Type Department Care Team (Late st Contact Info) Description 07/25/2019 Ancillary Orders [facility] [address] [place] [address] [place] [address] Patsy Lee CNM [address] [facility], [address] [place] [address] [email or web address] Social History Tobacco Use Types Packs/Day Years [...] Office Visit [facility] [address] [place] [address] [place] [address] Patsy Lee CNM [address] [place] [address], [address] [place] [address] 08/13/2026 2:00 PM EDT Office Visit [facility] [address] [place] [address] Sofia Seals [address] [place] [address], [address] [place] [address] [email or web address] documented as of this encounter Visit Diagnoses Not on filedocumented in this encounter Care Teams Lumber Buyer Relationship Specialty Start Date End Date Vero Garcia MD [address] [place] [address] PCP - General Internal Medicine 05/07/18 01/22/25 Sofia Seals [address] [place] [address], [address] [place] [address] PCP - General Family Medicine 01/23/25 01/23/25 Pcp, Not Required [address] [place] [address] PCP - General 05/17/25 05/31/25 Sofia Seals [address] [place] [address], [address] [place] [address] PCP - General Family Medicine 06/01/25 Patsy Lee CNM [address] [place] [address], [address] [place], [place] [id number] [email or web address] Obstetrics and Gynecology 10/09/17 Self-Referred, Patient 10/09/17 documented as of this encounter Additional Source Comments The information contained in this document represents components of the legal health record. It is not the complete legal health record.[facility]
--- OUTSIDE RECORDS SUMMARY | 2025-07-18 13:12 | XMS_ITS | Encounter Summary ---
Author Organization [facility] Address [address] [place] [address] [place] [address] Phone Care Team Providers Care Care Consultant Name Role Phone Patsy Lee CNNegrita Unavailable [phone] Self-Referred, Patient Unavailable Unavailab Vero Moraes MD Primary Care Provider [phone] Sofia Seals Primary Care Provider [phone] Pcp, Not Required Primary Care Provider Unavaila ble Sofia Seals Primary Care Provider Encounter Details Date Type Department Care Team (Late st Contact Info) Description 08/15/2024 Procedure Pass [facility], [address] [address] Social History Tobacco Use Types Packs/Day Years [...] Office Visit [facility] [address] [place] [address] [place] [address] Patsy Lee CNM [address] [place] [address], [address] [place] [address] 08/13/2026 2:00 PM EDT Office Visit [facility] [address] [place] [address] Sofia Seals [address] [place] [address], [address] [place] [address] [email or web address] documented as of this encounter Visit Diagnoses Not on filedocumented in this encounter Care Teams Care Consultant Relationship Specialty Start Date End Date Vero Garcia MD [address] [place] [address] PCP - General Internal Medicine 05/07/18 01/22/25 Sofia Seals [address] [place] [address], [address] [place] [address] [email or web address] PCP - General Family Medicine 01/23/25 01/23/25 Pcp, Not Required [address] [place] [address] PCP - General 05/17/25 05/31/25 Sofia Seals [address] [place] [address], [address] [place] [address] [email or web address] PCP - General Family Medicine 06/01/25 Patsy Lee CNM [address] [place] [address], [address] [place] [address] [email or web address] Obstetrics and Gynecology 10/09/17 Self-Referred, Patient 10/09/17 documented as of this encounter Additional Source Comments The information contained in this document represents components of the legal health record. It is not the complete legal health record.[facility]
--- OUTSIDE RECORDS SUMMARY | 2025-07-18 13:12 | XMS_ITS | Encounter Summary ---
Author Organization [facility] Address [address] [facility] [address] [place] [address] Phone Care Team Providers Care Upper Leather Sorter Name Role Phone Patsy Lee CNM Unavailable [phone] Self-Referred, Patient Unavailable Unavailab Vero Moraes MD Primary Care Provider Sofia Seals Primary Care Provider Pcp, Not Required Primary Care Provider Unavaila Sofia May Primary Care Provider Encounter Details Date Type Department Care Team (Late st Contact Info) Description 07/25/2019 Ancillary Orders Virtual Department [address] [place] [address] Patsy Lee CNM 22 [facility], [facility] [address] [place] [address] [email or web address] Breast screening Social History Tobacco Use Types [...] Visit [facility] [address] [place] [address] Patsy Lee CNM [address] [facility], [address] [place] [address] 08/13/2026 2:00 PM EDT Office Visit [facility] [address] [place] [address] Sofia Seals [address] [facility], [address] [place] [address] [email or web address] documented as of this encounter Results [...] There are scattered fibroglandular densities. POS - [id number] Narrative 10/11/2019 1:11 PM EST Full-field digital [...] or architectural distortion is identified. Procedure Note Koel Peck MD - 10/11/2019 Full-field digital mammography [...] There are scattered fibroglandular densities. POS - [id number] Patsy Lee CNM IMG MG EXAMS Final Result documented in this encounter Visit Diagnoses Diagnosis Breast screening Breast screening, unspecified Breast screening Breast screening, unspecified documented in this encounter Care Teams Upper Leather Sorter Relationship Specialty Start Date End Date Vero Garcia MD [address] [place] [address] PCP - General Internal Medicine 05/07/18 01/22/25 Sofia Seals [address] [place] [address], [address] [place] [address] PCP - General Family Medicine 01/23/25 01/23/25 Pcp, Not Required [address] [place] [address] PCP - General 05/17/25 05/31/25 Sofia Seals [address] [place] [address], [address] [place] [address] PCP - General Family Medicine 06/01/25 Patsy Lee CNM [address] [place] [address], [address] [place] [address] [email or web address] Obstetrics and Gynecology 10/09/17 Self-Referred, Patient 10/09/17 documented as of this encounter Additional Source Comments The information contained in this document represents components of the legal health record. It is not the complete legal health record.[facility]
--- OUTSIDE RECORDS SUMMARY | 2025-07-18 13:12 | XMS_ITS | Patient Health Record ---
Author Organization [facility] Address [address] [facility] [place] [address] Care Team Providers Care Grading Clerk Name Role Phone Sofia Andersen MD Primary Care Provider Un available Black, Nisha Unavailable [phone] Allergies Allergen (clinical drug ingredient) Drug/Non Drug [...] Problem Acquired hammer toe of right foot (732852054800 9105) Other hammer toe(s) (acquired), right foot (M20.41) Active confirmed Problem Acquired hallux valgus (86773262) Hallux valgus (acquired), left foot (M20.12) Active confirmed Problem Acquired hammer toe of left foot (222686044164 9103) Other hammer toe(s) (acquired), left foot (M20.42) Active confirmed Problem Acquired hallux valgus (31982668) Hallux valgus (acquired), right foot (M20.11) Active confirmed 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) Active confirmed Problem PlantarFlexion o f metatarsal of left foot (M21.6X2) Active confirmed Encounters Encounter Location Date Provider Diagnosis [facility] [place] [address] [place] [address] 08/23/2024 Nisha Alvarez [facility] [place] [address] [place] [address] 06/29/2025 Nisha Alvarez Plan Of Treatment Pending Test Test Name Order Date [id number] Destruction, -14 06/21/2020 [id number]-Otdu Destruction, 11-0109/27/2020 [id number]-Hxfg Destruction, 11-0112/10/2020 15568-Tqop Destruction, 11-0102/04/2021 20927-Ipzx Destruction, -03/29/2021 Insurance Providers Payer Name Payer Address Payer Phone Subscriber Number Group Number Insured Name Patient Relationship to Insured Coverage Start Date Coverage End Date [facility] re-75[address] [address] [address] [place] [id number] Britney Gan Self - patient is the insured Medical (General) History Medical History History ICD Code Headaches/Migraines Surgical History Surgery Date(Month/Year) Lumbar Microdiscectomy 04/07/2005 Eye Lasik Surgery
--- OUTSIDE RECORDS SUMMARY | 2025-07-18 13:12 | XMS_ITS | Clinical Summary ---
Author Organization [facility] Address [address] [facility] [address] [place] [address] Phone Care Team Providers Care Coupon And Bond Collection Clerk Name Role Phone Patsy Lee CNNegrita Unavailable [phone] Self-Referred, Patient Unavailable Unavailab Sofia Rivera Primary Care Provider Allergies Active Allergy Reactions Criticality Noted Date Comments Minocycline Rash Low 09/23/2017 Other reaction(s): Bad rash/itching Sulfamethoxazole-Trimethopri m Rash Low 03/29/2021 Medications tretinoin (RETIN-A) 0.1 % cream 05/17/2025 Active Active Problems Problem Noted Date Diagnosed Date Grief 06/01/2025 Assessment & Plan (06/01/2025 3:55 PM EDT): Lost her mother at the beginning of the year, then her brother and then her dog. Perimenopause 09/19/2024 Assessment & Plan (06/01/2025 3:50 PM EDT): Last period was in October 2024. Has discussed HRT with her nurse geospatial image analyst. Assessment & Plan (09/19/2024 6:36 PM EST): We discussed expectations for the perimenopause and symptoms that may occur - irregular periods, sometimes heavy periods, hot flashes, insomnia, mood changes. We discussed HRT can be considered for relief of these symptoms and there are some additional benefits for HRT including reduced risk of dementia and also improvement in bone density. At this point, it does not seem that HRT is warranted- we can revisit later on in menopausal transition Other microscopic hematuria 09/13/2023 Assessment & Plan (06/01/2025 3:48 PM EDT): Longstanding blood in her urine since 2019. Saw urology through [facility] who did a cystoscopy and full work up. Was told she should only come back if she has gross hematuria. Assessment & Plan (09/13/2023 10:40 AM EST): Jeannie has had persistent microscopic hematuria over several years. Has also had frequent urination but otherwise denies concerning symptoms. In 2019 she saw a urologist who did a cystoscopy and said there was no concern, he recommended to her that she only come back if there is visible blood in urine. Her PCP ordered a UA which shows persistent microscopic hematuria and has ordered another and Jeannie is feeling frustrated by having to do multiple urine specimens. She did not use the Estrace Cream that we discussed last time and preferred to avoid. She has been trying a supplement called Uqora which is for there urinary tract - uses a wash, a flush and an oral tablet. Feels like she is feeling better since she started about a month ago but was concerned because her PCP said one of her LFTs was elevated and she wasn't sure if that had caused it (it is listed as a possible side effect). A: Microscopic hematuria P:I recommended we get records from the urologist and I will touch base to confirm when we should consider sending her back. I will look into Uqora to make recommendation on whether she should continue or not. 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 Resolved Problems Problem Noted Date Diagnosed Date Resolved Date Encounter for surveillance o f contraceptive pills 04/03/2021 09/13/2023 Assessment & Plan (09/13/2023 10:41 AM EST): Jeannie has discontinues OCP. Not sexually active Menses has been fine, denies hot flashes or other perimenopausal symptoms Assessment & Plan (04/12/2022 4:30 PM EDT): Happy with OCPs Wants to continue for now Assessment & Plan (04/03/2021 10:46 PM EDT): A: Continuing on OCPs for contraception but also for control of acne P: Due to age, I recommended that we reduce her to a lower dose of estrogen to help modify the risk of DVT/stroke. She agrees to try Rx Ortho Tricylen Lo sent Reviewed sometimes there can be symptoms with a OCP transition like spotting or increase in acne- Recommended giving it 3 months time and calling if persists We also discussed other options for control of acne, such as Differin Frequent urination 04/03/2021 5 Overview (04/12/2021): 04/12/21 Due to persistent hematuris (had working up with negative cystoscopy and neg CT in 2019) I recommended checking in with Urology about this new symptom. Assessment & Plan (04/12/2022 4:29 PM EDT): A: Frequent Urination that seems to come with menses Possibly d/t atrophy P: R/O UTI - UA, U culture Trial of estrace cream at time of menses to urethra Assessment & Plan (04/03/2021 10:44 PM EDT): A: Frequent urination at times, able to void large amounts No other evidence of UTI, no incontinence No evidence of vulvovaginal atrophy on exam P: PCP has ordered UA with reflex, CMP, CBC, TSH Will await lab results We discussed considering a referral to Dr Castellanos if symptoms become persistent or causing incontinence Encounters Date Type Department Care Team Description 06/01/2025 3:30 PM EDT Office Visit [facility] [address] [place] [address] T[facility]-Sofia Duncan Other microscopic hematuria; Grief; Perimenopause; Primary focal hyperhidrosis; Screening due from Last 3 Months Immunizations Immunization Administration Dates Next Due COVID-19 (Pre-08/10) Pfizer Vaccine, mRNA, PF 12/08/2020,11/17/2020 Influenza Quadrivalent MDCK Preservative Free IM 06/21/2022,07/10/2021,06/30/2018 Influenza Quadrivalent Prese rvative Free IM 07/11/2023,06/14/2020,07/30/2016,2014 Influenza Trivalent MDCK Pre servative Free IM 06/16/2024 Pneumococcal conjugate PCV20 03/01/2025 Tdap 04/23/2018 Zoster recombinant 05/12/2025,03/01/2025 Family History Medical History Relation Comments Esophageal cancer Brother 1 Non-hodgkins Lymphoma Brother 1 Diverticulitis Brother 2 CV disease Father Atrial fibrillation Mother COPD Mother Diabetes mellitus Mother Failure to thrive Mother Heart failure Mother Hypertension Mother Liver disease Mother Pancytopenia Mother No Known Problems Sister 1 In her sleep, unknown cause of . Breast cancer Sister 2 DCIS Breast cancer Sister 3 Invasive ductal carcinoma No Known Problems Sister 4 No Known Problems Sister 5 No Known Problems Sister 6 Asthma Son Relation Status Comments Brother 1 (Age 54) Brother 2 Alive Father Maternal Grandfather Maternal Grandmother Mother Paternal Grandfather Paternal Grandmother Sister 1 Sister 2 Alive Sister 3 Alive Sister 4 Alive Sister 5 Alive Sister 6 Alive Son Alive Social History Tobacco Use Types Packs/Day Years Used Date Smoking Tobacco: Never Smokeless Tobacco: Never Alcohol Use Standard Drinks/Week Comments Not Currently 0 (1 standard drink = 0.6 oz pur e alcohol) rare Child or Family Care Answer Date Record ed Do you have problems with on e of the following making it difficult for you to work, study, or receive health care? I choose not to answer 05/31/2025 Education Answer Date Recorded Are you interested in help w ith more adult education (for example, completing high school, GED, job training, learning the [place] language, technical skills, or developing parenting skills)? I choose not to answer 05/31/2025 Are you concerned about learning? Not on file 05/31/2025 No 05/31/2025 Yes 05/31/2025 Food Answer Date Recorded Within the past 6 months we worried whether our food would run out before we got money to buy more. I choose not to answer 05/31/2025 Within the past 6 months the food we bought just didn't last and we didn't have enough money to get more. I choose not to answer 05/31/2025 Residential Stability Answer Date Recor ded What is your housing situation today? I choose n ot to answer 05/31/2025 How many times have you move d in the past 12 months? I choose not to answer 05/31/2025 Paying for Meds Answer Date Recorded Do you have trouble paying for medicines? I aura se not to answer 05/31/2025 Paying Utility Bills Answer Date Record ed Do you have trouble paying y our heating or electricity bill? I choose not to answer 05/31/2025 Transportation Answer Date Recorded Has the lack of transportati on kept you from medical appointments or from getting medications? I choose not to answer 05/31/2025 Digital Access Answer Date Recorded No 05/31/2025 No 05/31/2025 Do you have reliable internet access at home? I choose not to answer 05/31/2025 Do you have a device (e.g., phone, tablet, computer) with a working camera? I choose not to answer 05/31/2025 Intimate Partner Violence Answer Date R ecorded Are you denied basic needs s uch as food, clothing, or medical care? No 05/31/2025 In the past 12 months have y ou been in a relationship with a person who hurts, threatens, or tries to control you? No 05/31/2025 Are you denied basic needs s uch as food, clothing, or medical care? No 05/31/2025 In the past 12 months have y ou been in a relationship with a person who hurts, threatens, or tries to control you? No 05/31/2025 Comments No Sex and Gender Information Value Date Recorded Sex Assigned at Female 10/26/2017 9:35 AM EST Legal Sex Female 4:37 PM EST Gender Identity Female 10/26/2017 9:35 AM EST Sexual Orientation Straight 10/26/2017 9: 35 AM EST Occupation Industry Job Start Date Job End Date [employer] Not on file Not on file Not on fi le Last Filed Vital Signs Vital Sign Reading Time Taken Comments Blood Pressure 118/80 06/01/2025 3:25 PM EDT Pulse 80 06/01/2025 3:25 PM EDT Temperature 36.2 C (97.1 F) 06/01/2025 3:25 PM EDT Respiratory Rate 17 06/15/2024 12:24 PM EDT Oxygen Saturation 99% 06/01/2025 3:25 PM EDT Inhaled Oxygen Concentration - - Weight 70.6 kg (155 lb 9.6 oz) 06/01/2025 3:25 P M EDT Height 158.9 cm (5' 2.56 ) 06/01/2025 3:25 PM ED T Body Mass Index 27.95 06/01/2025 3:25 PM EDT Plan of Treatment Upcoming Encounters Date Type Department Care Team (Late st Contact Info) Description 09/22/2025 1:30 PM EST Office Visit [facility] [address] [place] [address] [place] [address] Patsy Lee CNM [address] [place] [address], [address] [place] [address] 08/13/2026 2:00 PM EDT Office Visit [facility] [address] [place] [address] [place] [address] Sofia Seals [address] [place] [address], [address] [place] [address] [email or web address] Health Maintenance Due Date Last Done Comments COLOGUARD 02/29/2020 FIT TEST 02/29/2020 FOBT 02/29/2020 SIGMOIDOSCOPY 02/29/2020 VIRTUAL COLONOSCOPY 02/29/2020 INFLUENZA VACCINE (#1) 2025 , 07/11/2023, 06/21/2022, Additional history exists MAMMOGRAM 01/23/2026 01/23/2025, 11/20, 11/28/2022, Additional history exists DEPRESSION SCREENING 05/31/2026 05/31/2025 PAP SMEAR 04/10/2027 04/10/2022, 02/2018, 10/23/2017 SCREENING FOR DIABETES 08/13/2027 08/13/2024, 2023 Adult Td,Tdap Booster 04/23/2028 04/23/2018 LIPID PANEL 08/13/2029 08/13/2024, 07/19, 04/03/2021, Additional history exists COLONOSCOPY 02/22/2032 02/21/2022 COLORECTAL CANCER SCREENING 02/22/2032 HIV ONE-TIME SCREENING (18-65 YEARS) Completed 10/23/2017 HEPATITIS C SCREENING Completed 05/19/2019, 018 COVID-19 VACCINE Completed 06/16/2024, , 07/04/2022, Additional history exists PNEUMOCOCCAL VACCINES (50+ years) Completed 03/01/2025 ZOSTER VACCINES Completed 05/12/2025, 03/01/2025 SMOKING STATUS SCREENING (Once After 26 Yrs) Completed 06/01/2025 HEPATITIS A VACCINES Aged Out No long er eligible based on patient's age to complete this topic HIB VACCINES Aged Out No longer eligi ble based on patient's age to complete this topic MENINGOCOCCAL VACCINES (ACWY) Aged Out No longer eligible based on patient's age to complete this topic MENINGOCOCCAL VACCINES (B) Aged Out N o longer eligible based on patient's age to complete this topic Medical Devices Not on file Procedures Procedure Name Priority Date/Time Associated Diagnosis Comments BI MAMMOGRAM SCREENING WITH TOMOSYNTHESIS WITH CAD (BILATERAL) Routine 01/23/2025 3:18 PM EDT Breast screening LIPID PANEL Routine 08/13/2024 8:07 AM EDT Leukocytosis, unspecified type Other microscopic hematuria Frequent urination Primary focal hyperhidrosis PAP TEST Routine 04/10/2022 12:00 AM EDT ENDOSCOPY, COLON 02/21/2022 10:2 1 AM EDT HEPATITIS C ANTIBODY, QUALITATIVE Routine 05/19/2019 1:26 PM EDT Shoulder pain, unspecified chronicity, unspecified laterality Microhematuria Routine general medical examination at a health care facility from Last 3 Months or Most Recently Relevant to Health Maintenance Results * BI MAMMOGRAM SCREENING WITH TOMOSYNTHESIS WITH CAD (BILATERAL) (01/23/2025 3:18 PM EDT) Anatomical Region Laterality Modality Breast Left, Breast Right, Breast Bilateral Bila teral Mammography 01/24/2025 11:3 8 AM EDT Impressions 01/24/2025 11:38 AM EDT No mammographic evidence of malignancy in either breast. Annual screening mammography is recommended. BI-RADS 1 NEGATIVE The patient will be notified of the results and recommendations. Narrative 01/24/2025 11:38 AM EDT BI MAMMOGRAM SCREENING WITH TOMOSYNTHESIS WITH CAD (BILATERAL) Additional patient information: Screening. COMPARISON: Comparison is made with relevant prior imaging. Breast composition: There are scattered areas of fibroglandular density. FINDINGS: No abnormal masses, suspicious calcifications, or other significant findings are identified mammographically in either breast. Procedure Note Natalia Aguilar MD - 01/24/2025 BI MAMMOGRAM SCREENING WITH TOMOSYNTHESIS WITH CAD (BILATERAL) Additional patient information: Screening. COMPARISON: Comparison is made with relevant prior imaging. Breast composition: There are scattered areas of fibroglandular density. FINDINGS: No abnormal masses, suspicious calcifications, or other significantfindings are identified mammographically in either breast. IMPRESSION: No mammographic evidence of malignancy in either breast. Annual screening mammography is recommended. BI-RADS 1 NEGATIVE The patient will be notified of the results and recommendations. Vero Balderas MD IMG MG EXAMS Final Resul t * (ABNORMAL) Lipid panel (08/13/2024 8:07 AM EDT) HDL 78 mg/dL [facility] Comment: Interpretation <40 mg/dL: Low HDL cholesterol (major risk factor for CHD) Greater than or equal to 60 mg/dL: High HDL cholesterol ( negative risk factor for CHD) HDL - cholesterol is affected by a number of factors, e.g. smoking, excerise, hormones, sex and age. CHOLESTEROL 190 0 - 240 mg/dL [facility] TRIGLYCERIDES 68 30 - 160 mg/dL [facility] LDL 98 50 - 129 mg/dL [facility] Comment: LDL levels in terms of risk for coronary heart disease: <100 mg/dL: Optimal 100-129 mg/dL: Near or above optimal 130-159 mg/dL: Borderline high 160-189 mg/dL: High >190 mg/dL: Very High CARDIAC RISK RATIO 2.4(L) 3.3 - 4.4 [facility] Blood 08/13/2024 8:07 AM EDT 08/13/2024 8:12 AM EDT us Sole [facility] BLOOD ORDERABLES Final Resu lt [address] [address] * Pap Smear (04/10/2022 12:00 AM EDT) 04/10/2022 04/14/2022 9:4 4 AM EDT Narrative SEE NARRATIVE - 04/23/2022 5:08 PM EDT [address] [address] Principal Automation Engineer: Shawna Perkins MD PLANT WIRE CHIEF Cytology Report FINAL DIAGNOSIS A. PAP SMEAR (SUREPATH) CE: SPECIMEN ADEQUACY: Satisfactory for evaluation; transformation zone present. INTERPRETATION: NEGATIVE FOR INTRAEPITHELIAL LESION OR MALIGNANCY. Reactive changes. Coccobacilli consistent with shift in shelia Electronically Signed Out By: MARISA Wu MD(ASCP) By his/her signature above, the pathologist listed as making the Final Diagnosis certifies that he/she has personally reviewed this case and confirmed or corrected the diagnosis. The Pap test is a screening test primarily for squamous cancers and precursors and has associated false-negative and false-positive results. New technologies such as liquid-based preparations may decrease but will not eliminate all false-negative results. Regular sampling and follow-up of unexplained clinical signs and symptoms are recommended to minimize false negative results. PROCEDURES/ADDENDA HPV Testing (Requested) Ordered Date: 04/14/2022 A. PAP SMEAR (SUREPATH) CE: Human Papilloma Virus Test Negative for high-risk human papillomavirus types 16, 18, 45 and the Other high risk probe set (Includes 31, 33, 35, 39, 51, 52, 56, 58, 59, 66, 68) by Fitmo Onclarity HR-HPV analysis. Clinical correlation is advised. This HPV test was performed at [facility], [address] [place] [address]. This test has been FDA approved for SurePath cervical cytology specimens. The accuracy and precision of this test for all other specimen sources has been verified in the Cytopathology Laboratory of the [facility] and has not been cleared or approved by the U.S. Food and Drug Administration. Clinical correlation is advised. CLINICAL HISTORY Date of Last Menstrual Period: 03-25-2022 Other Clinical Conditions: Screening Pap SPECIMEN SOURCE A: PAP SMEAR (SUREPATH) CE Patient Name: JEANNIE GAN : 1975 (Age: 47) Sex: F Institution: [facility] Location: [facility] Date of Collection: 04/10/2022 Date of Reported: 04/23/2022 17:08 Results to: Patsy Lee CNM Patsy Lee CNM CYTOLOGY ORDERABLES Final Resul t SEE NARRATIVE * ENDOSCOPY, COLON (02/21/2022 10:21 AM EDT) Narrative Transcriptions Jimmy Franco MD - 02/21/2022 10:21 AM EDT Patient Name: Jeannie Solerto Attending MD:: JIMMY FRANCO MD Procedure Date: 02/21/2022 10:21 AM Date of : 1975 Age: 46 Admit Type: Outpatient Gender: Female Room: [place] [address] Referring MD: VERO BALDERAS MD Exam Type: Colonoscopy Indications: Screening for colorectal malignant neoplasm, Thisis the patient's first colonoscopy Medications: Monitored Anesthesia Care Procedure: Informed consent was obtained from the patientafter discussion of the indications, limitations, alternatives, benefits, and risks of the procedure. Risks specifically discussed include but are not limited to medication reactions, missed lesions, bleeding, perforation, or the need for emergent surgery. Throughout the procedure, the patient's blood pressure, pulse, end-tidal CO2, and oxygensaturations were monitored continuously. The Olympus adult variable colonoscope CF-[id number] #6 was introduced through the anus and advanced to the terminal ileum, with identification of theappendiceal orifice and IC valve. The colonoscopy was performed without difficulty. The patient tolerated the procedure well. The quality of the bowelpreparation was excellent. The terminal ileum, ileocecal valve, appendiceal orifice, and rectum werephotographed. Complications: No immediate complications. Estimated blood loss:None. Findings: The terminal ileum appeared normal. Examination of the right colon was repeated in retroflexion and again in NBI. Retroflexion wasalso performed in the rectum. The entire examined colon appeared normal. Impression: - The examined portion of the ileum was normal. - The entire examined colon is normal. - No specimens collected. Recommendation: - Patient has a contact number available for emergencies. The signs and symptoms of potential delayed complications were discussed with thepatient. Return to normal activities tomorrow. Written discharge instructions were provided to thepatient. - Repeat colonoscopy in 10 years for screening purposes. Jimmy Franco JIMMY FRANCO MD 02/21/2022 10:44:40 AM This report has been signed electronically. Number of Addenda: 0 Note Initiated On: 02/21/2022 10:21 AM Procedure Code(s): --- Professional --- 54893, Colonoscopy, flexible; diagnostic, including collection of specimen(s) by brushing or washing, when performed (separateprocedure) --- Technical --- 44098, Colonoscopy, flexible; diagnostic, including collection of specimen(s) by brushing or washing, when performed (separateprocedure) CPT copyright 2020 [employer]. All rights reserved. The codes documented in this report are preliminary and upon metal fabricator helper reviewmay be revised to meet current compliance requirements. Procedure Date: 02/21/2022 10:21:[address] [place] [address] [place] Vero Balderas MD GI PROCEDURE ORDERABLES Fin al Result * Hepatitis C antibody, qualitative (05/19/2019 1:26 PM EDT) HCV NON-REACTIV E NON-REACTI VE [facility] Blood 05/19/2019 1:26 PM EDT 05/19/2019 1:28 PM EDT us [facility] BLOOD ORDERABLES Final Resu lt [address] [address] from Last 3 Months or Most Recently Relevant to Health Maintenance Insurance [facility] H[employer] O [facility] [place] [place] Address: [address] [address] [employer] O Member Subscriber Plan / Payer (Ef fective 2023-Present) Name:Jeannie Gan Relation to Subscriber:Self Name:Jeannie Gan Payer ID:Not on file Type:HMO Address: [address] [employer] O Member Subscriber Plan / Payer (Ef fective 2023-Present) Name:Jeannie Gan Relation to Subscriber:Self Name:Jeannie Gan Payer ID:Not on file Type:O Address: [address] [employer] HMO [employer] O [employer] O HMO O Care Teams Coupon And Bond Collection Clerk Relationship Specialty Start Date End Date Sofia Seals [address] [place] [address], [address] [place] [address] PCP - General Family Medicine 06/01/25 Patsy Lee CNM [address] [place] [address], [facility] [address] [place] [address] [email or web address] Obstetrics and Gynecology 10/09/17 Self-Referred, Patient 10/09/17 Additional Source Comments The information contained in this document represents components of the legal health record. It is not the complete legal health record.[facility]
--- OUTSIDE RECORDS SUMMARY | 2025-07-18 13:12 | XMS_ITS | Encounter Summary ---
Author Organization [facility] Address [address] [place] [address] Phone Care Team Providers Care Supervisor Component Assembler Name Role Phone Patsy Lee CNM Unavailable [phone] Self-Referred, Patient Unavailable Unavailab Vero Moraes MD Primary Care Provider [phone] Sofia Seals Primary Care Provider Pcp, Not Required Primary Care Provider Unavaila ble Sofia Seals Primary Care Provider Encounter Details Date Type Department Care Team (Late st Contact Info) Description 02/21/2022 Procedure Pass [facility] Endoscopy Admitting Dept Virtual Department [address] [place] [address] Social History Tobacco Use Types Packs/Day [...] Visit [facility] [address] [place] [address] Patsy Lee CNM [address] [place] [address], [address] [place] [address] 08/13/2026 2:00 PM EDT Office Visit [address] [address] Sofia Seals [address] [place] [address], [address] [place] [address] [email or web address] documented as of this encounter Visit Diagnoses Not on filedocumented in this encounter Care Teams Supervisor Component Assembler Relationship Specialty Start Date End Date Vero Garcia MD [address] [place] [address] PCP - General Internal Medicine 05/07/18 01/22/25 Sofia Seals [address] [place] [address], [address] [place] [address] PCP - General Family Medicine 01/23/25 01/23/25 Pcp, Not Required [address] [place] [address] PCP - General 05/17/25 05/31/25 Sofia Seals [address] [place] [address], [address] [place] [address] PCP - General Family Medicine 06/01/25 Patsy Lee CNM [address] [place] [address], [address] [place] [address] Obstetrics and Gynecology 10/09/17 Self-Referred, Patient 10/09/17 documented as of this encounter Additional Source Comments The information contained in this document represents components of the legal health record. It is not the complete legal health record.[facility]
--- OUTSIDE RECORDS SUMMARY | 2025-07-18 13:12 | XMS_ITS | Encounter Summary ---
Author Organization [facility] Address [address] [place] [address] Phone Care Team Providers Care Car Usher Name Role Phone Patsy Lee SADIENegrita Unavailable Self-Referred, Patient Unavailable Unavailab Vero Moraes MD Primary Care Provider Sofia Seals Primary Care Provider Pcp, Not Required Primary Care Provider Unavaila ble Sofia Seals Primary Care Provider Encounter Details Date Type Department Care Team (Late st Contact Info) Description 10/01/2023 Transcribe Orders Virtual Department 30 [place] [address] Vero Garcia MD [address] [place] [address] [phone] [email or web address] Breast screening (Primary Dx) Social History Tobacco Use Types [...] Office Visit [facility] [address] [place] [address] [place] [address] Patsy Lee CNM [address] [place] [address], [address] [place] [address] 08/13/2026 2:00 PM EDT Office Visit [facility] [address] [place] [address] [place] [address] Sofia Seals [address] [place] [address], [address] [place] [address] [email or web address] documented as of this encounter Results * BI MAMMOGRAM SCREENING WITH TOMOSYNTHESIS WITH CAD (BILATERAL) (12/08/2023 3:45 PM EST) Anatomical Region Laterality Modality Breast Left, Breast Right, Breast Bilateral Bila teral Mammography 12/10/2023 5:16 PM EST Impressions 12/11/2023 10:17 AM EST No mammographic signs of malignancy. Annual screening is recommended. BI-RADS CATEGORY: 1 - Negative. DENSITY: There are scattered fibroglandular densities. Narrative 12/11/2023 10:17 AM EST Bilateral mammography is performed in conjunction with computed aided detection. 3-D tomography along with 2-D C view imaging was also performed. Comparison made to previous dated as far back as 10/09/2017 and as recent as 11/28/2022. No suspicious masses, areas of architectural distortion or suspicious microcalcifications. Procedure Note Eugenio Lantigua MD - 12/11/2023 Bilateral mammography is performed in conjunction with computed aideddetection. 3-D tomography along with 2-D C view imaging was alsoperformed. Comparison made to previous dated as far back as 10/09/2017 andas recent as 11/28/2022. No suspicious masses, areas of architectural distortion or suspiciousmicrocalcifications. IMPRESSION: No mammographic signs of malignancy. Annual screening is recommended. BI-RADS CATEGORY: 1 - Negative. DENSITY: There are scattered fibroglandular densities. Vero Garcia MD IMG MG EXAMS Final Resul t documented in this encounter Visit Diagnoses Diagnosis Breast screening- Primary Breast screening, unspecified Breast screening Breast screening, unspecified documented in this encounter Care Teams Car Usher Relationship Specialty Start Date End Date Vero Garcia MD [address] [place] [address] PCP - General Internal Medicine 05/07/18 01/22/25 Sofia Seals [address] [place] [address], [address] [place] [address] PCP - General Family Medicine 01/23/25 01/23/25 Pcp, Not Required [address] [place] [address] PCP - General 05/17/25 05/31/25 Sofia Seals [address] [place] [address], [address] [place] [address] PCP - General Family Medicine 06/01/25 Patsy Lee CNM [address] [place] [address], [address] [place] [address] [email or web address] Obstetrics and Gynecology 10/09/17 Self-Referred, Patient 10/09/17 documented as of this encounter Additional Source Comments The information contained in this document represents components of the legal health record. It is not the complete legal health record.[facility]
--- OUTSIDE RECORDS SUMMARY | 2025-07-18 13:12 | XMS_ITS | Encounter Summary ---
Author Organization [facility] Address [address] [place] [address] [place] [address] Phone Care Team Providers Care Vending Machine Filler Name Role Phone Patsy Lee CNNegrita Unavailable [phone] Self-Referred, Patient Unavailable Unavailab Vero Moraes MD Primary Care Provider [phone] Sofia Seals Primary Care Provider [phone] Pcp, Not Required Primary Care Provider Unavaila ble Sofia Seals Primary Care Provider [phone] Encounter Details Date Type Department Care Team (Latest Contact Info) Description 09/09/2022 Transcribe Orders Virtual Department 30 [place] [address] Sole Bunn PA [address] [place] [address] [email or web address] Breast screening (Primary Dx) Social History Tobacco [...] Visit [facility] [address] [place] [address] Patsy Lee, SANIYA [address] [facility], [address] [place] [address] 08/13/2026 2:00 PM EDT Office Visit [facility] [address] [place] [address] Sofia Seals 22 [facility], [address] [place] [address] [email or web address] documented as of this encounter Results * BI MAMMOGRAM SCREENING WITH TOMOSYNTHESIS WITH CAD (BILATERAL) (11/28/2022 1:38 PM EST) Anatomical Region Laterality Modality Breast Left, Breast Right, Breast Bilateral Bila teral Mammography 11/28/2022 3:41 PM EST Impressions 11/28/2022 3:46 PM EST No findings suspicious for malignancy are identified. In the absence of a worrisome palpable abnormality, annual screening mammography is recommended. BI-RADS CATEGORY: 1 - Negative. DENSITY: There are scattered fibroglandular densities. Narrative 11/28/2022 3:46 PM EST AVAILABLE COMPARISON: 11/22/2021 through 08/16/2015 Bilateral 3-D tomosynthesis with 2-D reconstructions in the CC and MLO projection. Computer-aided detection system was utilized. No new mass, asymmetry, architectural distortion or suspicious calcifications have become apparent in either breast. Procedure Note Linden Zambrano MD - 11/28/2022 AVAILABLE COMPARISON: 11/22/2021 through 08/16/2015 Bilateral 3-D tomosynthesis with 2-D reconstructions in the CC and MLOprojection. Computer-aided detection system was utilized. No new mass, asymmetry, architectural distortion or suspiciouscalcifications have become apparent in either breast. IMPRESSION: No findings suspicious for malignancy are identified. In the absence of aworrisome palpable abnormality, annual screening mammography isrecommended. BI-RADS CATEGORY: 1 - Negative. DENSITY: There are scattered fibroglandular densities. us Sole KWONG IMG MG EXAMS Final Result documented in this encounter Visit Diagnoses Diagnosis Breast screening- Primary Breast screening, unspecified Breast screening Breast screening, unspecified documented in this encounter Care Teams Vending Machine Filler Relationship Specialty Start Date End Date Vero Garcia MD [address] [place] [address] [email or web address] PCP - General Internal Medicine 05/07/18 01/22/25 Sofia Seals [address] [place] [address], [address] [place] [address] [email or web address] PCP - General Family Medicine 01/23/25 01/23/25 Pcp, Not Required [address] [place] [address] PCP - General 05/17/25 05/31/25 Sofia Seals [address] [place] [address], [address] [place] [address] PCP - General Family Medicine 06/01/25 Patsy Lee CNM [address] [place] [address], [address] [place] [address] [email or web address] Obstetrics and Gynecology 10/09/17 Self-Referred, Patient 10/09/17 documented as of this encounter Additional Source Comments The information contained in this document represents components of the legal health record. It is not the complete legal health record.[facility]
--- OUTSIDE RECORDS SUMMARY | 2025-07-18 13:12 | XMS_ITS | Encounter Summary ---
Author Organization [facility] Address [address] [place] [address] [place] [address] Phone Care Team Providers Care Automatic Vulcanizing Operator Name Role Phone Patsy Lee CNNegrita Unavailable [phone] Self-Referred, Patient Unavailable Unavailab Vero Moraes MD Primary Care Provider [phone] Sofia Seals Primary Care Provider Pcp, Not Required Primary Care Provider Unavaila ble Sofia Seals Primary Care Provider Encounter Details Date Type Department Care Team (Latest Contact Info) Description 05/11/2018 Transcribe Orders [facility]lebotomy 30 [place] [address] Sole Bunn PA [address] [place] [address] [email or web address] Microhematuria (Primary Dx) Social History Tobacco Use [...] Description 09/22/2025 1:30 PM EST Office Visit [facility] [address] [place] [address] Patsy Lee CNM 22 [facility], [address] [place] [address] [email or web address] 08/13/2026 2:00 PM EDT Office Visit [facility] [address] [place] [address] [address] [facility], [address] [place] [address] [email or web address] documented as of this encounter Results * (ABNORMAL) Urinalysis with sediment (05/11/2018 5:03 PM EDT) WBC 0-4(A) NONE SEEN /hpf [facility] RBC 21-49(A) NONE SEEN /hpf [facility] URINE EPITHELIAL 5-10(A) NONE SEEN [facility] MUCUS Trace(A) NONE SEEN /hpf [facility] BACTERIA Trace(A) NONE SEEN [facility] COLOR Yellow Yellow [facility] CLARITY HAZY [facility] GLUCOSE Negative Negative [facility] BILI Negative Negative [facility] KETONES Negative Negative [facility] SPECIFIC GRAVITY <1.005 1.005 - 1.030 [facility] BLOOD 3+(A) Negative [facility] PH 5.5 5.0 - 8.0 [facility] Protein-UA Negative Negative [facility] NITRITE Negative Negative [facility] Leukocyte esterase, ur Negative Negative [facility] Urine (Urine) 05/11/2018 5:0 3 PM EDT 05/11/2018 5:08 PM EDT us Sole KWONG URINE ORDERABLES Final Result [facility] [address] [place] [address] * Urine culture (05/11/2018 5:03 PM EDT) Specimen Source/ Description URINE URINE URINE [facility] Special Requests None [facility] GRAM STAIN Few GRAM NEGATIVE RODS [facility] Culture/Test <10,000 colony forming units per ml [facility] Report Status 05/13/2018 FINAL [facility] Urine (Urine) 05/11/2018 5:0 3 PM EDT 05/11/2018 5:04 PM EDT us Sole KWONG MICROBIOLOGY - GENERAL ORDERABL ES Final Result [facility] [address] [place] [address] documented in this encounter Visit Diagnoses Diagnosis Microhematuria- Primary documented in this encounter Care Teams Automatic Vulcanizing Operator Relationship Specialty Start Date End Date Vero Garcia MD [address] [place] [email or web address] PCP - General Internal Medicine 05/07/18 01/22/25 Sofia Seals [address] [place] [address], [address] [place] [address] PCP - General Family Medicine 01/23/25 01/23/25 Pcp, Not Required [address] [place] [address] PCP - General 05/17/25 05/31/25 Sofia Seals [address] [place] [address], [address] [place] [address] [email or web address] PCP - General Family Medicine 06/01/25 Patsy Lee CNM [address] [place] [address], [address] [place] [address] [email or web address] Obstetrics and Gynecology 10/09/17 Self-Referred, Patient 10/09/17 documented as of this encounter Additional Source Comments The information contained in this document represents components of the legal health record. It is not the complete legal health record.[facility]
--- OUTSIDE RECORDS SUMMARY | 2025-07-18 13:12 | XMS_ITS | Encounter Summary ---
Author Organization [facility] Address [address] [place] [address] Phone Care Team Providers Care Sugar Chipper Machine Operator Name Role Phone Patsy Lee CNM Unavailable [phone] Self-Referred, Patient Unavailable Unavailab Vero Moraes MD Primary Care Provider Sofia Seals Primary Care Provider Pcp, Not Required Primary Care Provider Unavaila ble Sofia Seals Primary Care Provider [phone] Encounter Details Date Type Department Care Team (Late st Contact Info) Description 09/10/2021 Procedure Pass [address] [address] Social History Tobacco Use Types Packs/Day Years [...] Description 09/22/2025 1:30 PM EST Office Visit [facility] [address] [place] [address] [place] [address] Patsy Lee CNM [address] [place] [address], [address] [place] [address] 08/13/2026 2:00 PM EDT Office Visit [address] [address] Sofia Seals [address] [place] [address], [address] [place] [address] [email or web address] documented as of this encounter Visit Diagnoses Not on filedocumented in this encounter Care Teams Sugar Chipper Machine Operator Relationship Specialty Start Date End Date Vero Garcia MD [address] [place] [address] PCP - General Internal Medicine 05/07/18 01/22/25 Sofia Seals [address] [place] [address], [address] [place] [address] PCP - General Family Medicine 01/23/25 01/23/25 Pcp, Not Required [address] [place] [address] PCP - General 05/17/25 05/31/25 Sofia Seals [address] [place] [address], [address] [place] [address] PCP - General Family Medicine 06/01/25 Patsy Lee CNM [address] [place] [address], [address] [place] [address] Obstetrics and Gynecology 10/09/17 Self-Referred, Patient 10/09/17 documented as of this encounter Additional Source Comments The information contained in this document represents components of the legal health record. It is not the complete legal health record.[facility]
--- OUTSIDE RECORDS SUMMARY | 2025-07-18 13:12 | XMS_ITS | Encounter Summary ---
Author Organization [facility] Address [address] [facility] [address] [place] [address] Phone Care Team Providers Care Drapery Sewer Hand Name Role Phone Patsy Lee CNM Unavailable [phone] Self-Referred, Patient Unavailable Unavailab Vero Moraes MD Primary Care Provider Sofia Seals Primary Care Provider Pcp, Not Required Primary Care Provider Unavaila ble Sofia Seals Primary Care Provider Encounter Details Date Type Department Care Team (Late st Contact Info) Description 08/17/2018 Ancillary Orders [facility] [address] [place] [address] [place] [address] Patsy Lee CNM [address] [facility], [address] [place] [address] [email or web address] Breast screening Social History Tobacco Use Types [...] Visit [facility] [address] [place] [address] Patsy Lee CNM [address] [facility], [address] [place] [address] 08/13/2026 2:00 PM EDT Office Visit [facility] [place] [facility] [address] [place] [address] Sofia Seals [address] [facility], [address] [place] [address] [email or web address] documented as of this encounter [...] Images interpreted in conjunction with R-2 Image Accounts Officer computer-aided detection (CAD). FINDINGS: BREAST DENSITY: There are scattered fibroglandular densities. There are no suspicious masses, suspicious areas of architectural distortion or suspicious clusters of microcalcifications. Procedure Note Leonarda Zaragoza MD - 10/14/2018 BI MAMMOGRAM SCREENING WITH TOMOSYNTHESIS WITH CAD (BILATERAL) HISTORY: Screening. COMPARISON: Prior studies dating back to 08/16/2015, most [id number]/22/2017. TECHNIQUE: Digital breast tomosynthesis was performed in [...] unspecified documented in this encounter Care Teams Drapery Sewer Hand Relationship Specialty Start Date End Date Vero Garcia MD [address] [place] [address] PCP - General Internal Medicine 05/07/18 01/22/25 Sofia Seals [address] [place] [address], [address] [place] [address] PCP - General Family Medicine 01/23/25 01/23/25 Pcp, Not Required [address] [place] [address] PCP - General 05/17/25 05/31/25 Sofia Seals [address] [place] [address], [address] [place] [address] PCP - General Family Medicine 06/01/25 Patsy Lee CNM [address] [place] [address], [address] [place] [address] [email or web address] Obstetrics and Gynecology 10/09/17 Self-Referred, Patient 10/09/17 documented as of this encounter Additional Source Comments The information contained in this document represents components of the legal health record. It is not the complete legal health record.[facility]
--- OUTSIDE RECORDS SUMMARY | 2025-07-18 13:12 | XMS_ITS | Encounter Summary ---
Author Organization [facility] Address [address] [place] [address] [place] [address] Phone Care Team Providers Care Maintenance Person Name Role Phone Patsy Lee CNNegrita Unavailable [phone] Self-Referred, Patient Unavailable Unavailab Vero Moraes MD Primary Care Provider Sofia Seals Primary Care Provider Pcp, Not Required Primary Care Provider Unavaila ble Sofia Seals Primary Care Provider Encounter Details Date Type Department Care Team (Latest Contact Info) Description 05/21/2018 Transcribe Orders [facility] Laboratory [address] [place] [address] Sole Bunn PA [address] [place] [address] [email or web address] Microhematuria (Primary Dx) Social History Tobacco Use [...] Description 09/22/2025 1:30 PM EST Office Visit [facility] [address] [place] [address] Patsy Lee CNM [address] [facility], [address] [place] [address] [email or web address] 08/13/2026 2:00 PM EDT Office Visit [facility] [address] [place] [address] Sofia Seals [address] [facility], [address] [place] [address] [email or web address] documented as of this encounter Results * (ABNORMAL) Urinalysis with sediment (05/21/2018 4:24 PM EDT) WBC 0-4(A) NONE SEEN /hpf [facility] RBC 6-10(A) NONE SEEN /hpf [facility] URINE EPITHELIAL 0-4(A) NONE SEEN [facility] MUCUS Trace(A) NONE SEEN /hpf [facility] BACTERIA Trace(A) NONE SEEN [facility] COLOR Yellow Yellow [facility] CLARITY Clear [facility] GLUCOSE Negative Negative [facility] BILI Negative Negative [facility] KETONES Negative Negative [facility] SPECIFIC GRAVITY <1.005 1.005 - 1.030 [facility] BLOOD 1+(A) Negative [facility] PH 6.0 5.0 - 8.0 [facility] Protein-UA Negative Negative [facility] NITRITE Negative Negative [facility] Leukocyte esterase, ur Trace(A) Negative [facility] Urine (Urine) 05/21/2018 4:2 4 PM EDT 05/21/2018 4:32 PM EDT us Sole KWONG URINE ORDERABLES Final Result [facility] [address] [place] [address] documented in this encounter Visit Diagnoses Diagnosis Microhematuria- Primary documented in this encounter Care Teams Maintenance Person Relationship Specialty Start Date End Date Vero Garcia MD [address] [place] [address] PCP - General Internal Medicine 05/07/18 01/22/25 Sofia Seals [address] [place] [address], [address] [place] [address] PCP - General Family Medicine 01/23/25 01/23/25 Pcp, Not Required [address] [place] [address] PCP - General 05/17/25 05/31/25 Sofia Seals [address] [place] [address], [address] [place] [address] PCP - General Family Medicine 06/01/25 Patsy Lee CNM [address] [place] [address], [address] [place] [address] Obstetrics and Gynecology 10/09/17 Self-Referred, Patient 10/09/17 documented as of this encounter Additional Source Comments The information contained in this document represents components of the legal health record. It is not the complete legal health record.[facility]
--- OUTSIDE RECORDS SUMMARY | 2025-07-18 13:12 | XMS_ITS | Encounter Summary ---
Author Organization [facility] Address [address] [place] [address] Phone Care Team Providers Care Line Assembler Name Role Phone Patsy Lee CNM Unavailable [phone] Self-Referred, Patient Unavailable Unavailab Vero Moraes MD Primary Care Provider Sofia Seals Primary Care Provider Pcp, Not Required Primary Care Provider Unavaila ble Sofia Seals Primary Care Provider [phone] Encounter Details Date Type Department Care Team (Late st Contact Info) Description 09/09/2022 Procedure Pass [address] [address] Social History Tobacco Use Types Packs/Day Years [...] Description 09/22/2025 1:30 PM EST Office Visit [facility]YN [facility] Midwifery [address] [place] [address] [place] [address] Patsy Lee CNM [address] [place] [address], [address] [place] [address] 08/13/2026 2:00 PM EDT Office Visit [address] [address] Sofia Seals [address] [place] [address], [address] [place] [address] [email or web address] documented as of this encounter Visit Diagnoses Not on filedocumented in this encounter Care Teams Line Assembler Relationship Specialty Start Date End Date Vero Garcia MD [address] [place] [address] PCP - General Internal Medicine 05/07/18 01/22/25 Sofia Seals [address] [place] [address], [address] [place] [address] PCP - General Family Medicine 01/23/25 01/23/25 Pcp, Not Required [address] [place] [address] PCP - General 05/17/25 05/31/25 Sofia Seals [address] [place] [address], [address] [place] [address] PCP - General Family Medicine 06/01/25 Patsy Lee CNM [address] [place] [address], [address] [place] [address] Obstetrics and Gynecology 10/09/17 Self-Referred, Patient 12/22/17 documented as of this encounter Additional Source Comments The information contained in this document represents components of the legal health record. It is not the complete legal health record.[facility]
--- OUTSIDE RECORDS SUMMARY | 2025-07-18 13:12 | XMS_ITS | Encounter Summary ---
Author Organization [facility] Address [address] [place] [address] [place] [address] Phone Care Team Providers Care Volcanology Professor Name Role Phone Patsy Lee CNNegrita Unavailable [phone] Self-Referred, Patient Unavailable Unavailab Vero Moraes MD Primary Care Provider Sofia Seals Primary Care Provider Pcp, Not Required Primary Care Provider Unavaila ble Sofia Seals Primary Care Provider Encounter Details Date Type Department Care Team (Latest Contact Info) Description 05/19/2019 Transcribe Orders [facility] Laboratory [address] [place] [address] Sole Bunn PA [address] [place] [address] [email or web address] Shoulder pain, unspecified chronicity, unspecified laterality (Primary [...] Visit [facility] [address] [place] [address] Patsy Lee, CNM [address] [facility], [address] [place] [address] [email or web address] 08/13/2026 2:00 PM EDT Office Visit [facility] [place] [facility] [address] [place] [address] Sofia Seals [address] [facility], [address] [place] [address] [email or web address] documented as of this encounter Results * Hepatitis C antibody, qualitative (05/19/2019 1:26 PM EDT) HCV NON-REACTIV E NON-REACTI VE [facility] Blood 05/19/2019 1:26 PM EDT 05/19/2019 1:28 PM EDT us Sole Blbrain PA LAB BLOOD ORDERABLES Final Resu lt Performing Organization Address City/[facility]/ZIP Co de Phone Number [address] [address] * Hepatitis B core antibody, total (05/19/2019 1:26 PM EDT) HEP B CORE AB, TOT NON-REACTI VE NON-REACTI VE [facility] Blood 05/19/2019 1:26 PM EDT 05/19/2019 1:28 PM EDT [facility]LOOD ORDER[facility] Final Resu lt [address] [address] * Hepatitis B surface antigen (05/19/2019 1:26 PM EDT) HBV SURFACE ANTIGEN NON-REACTI VE NON-REACTI VE [facility] Blood 05/19/2019 1:26 PM EDT 05/19/2019 1:28 PM EDT Sole Oni ND LAB BLOOD ORDERABLES Final Resu lt [address] [address] * Hepatitis B surface antibody (05/19/2019 1:26 PM EDT) HBV SURFACE ANTIBODY Negative [facility] Blood 05/19/2019 1:26 PM EDT 05/19/2019 1:28 PM EDT Sole Oni ND LAB BLOOD ORDERABLES Final Resu lt Performing Organization Address [facility] Co de Phone Number [address] [address] * LFTs (hepatic panel) (05/19/2019 1:26 PM EDT) ALKALINE PHOSPHATASE 61 39 - 117 U/L [facility] TOTAL BILIRUBIN 0.4 0.0 - 1.2 mg/dL [facility] DIRECT BILIRUBIN <0.2 0 - 0.3 mg/dL [facility] Bilirubin (Indirect) NOT CALCULATED 0 - 1.5 mg/dL [facility] AST 28 0 - 37 U/L [facility] ALT 36 0 - 40 U/L [facility] TOTAL PROTEIN 7.3 6.5 - 8.0 g/dL [facility] ALBUMIN 4.4 3.9 - 4.8 g/dL [facility] GLOBULIN 2.9 1 - 4.8 g/dL [facility] A/G Ratio 1.52 1.00 - 4.80 RATIO [facility] Blood 05/19/2019 1:26 PM EDT 05/19/2019 1:28 PM EDT us Sole Blume PA LAB BLOOD ORDERABLES Final Resu lt Performing Organization Address [facility]/ZIP Co de Phone Number [address] [address] * Sedimentation rate (ESR) (05/19/2019 1:17 PM EDT) ESR 2 0 - 20 mm/h [facility] Blood 05/19/2019 1:17 PM EDT 05/19/2019 1:20 PM EDT us Sole Blume PA LAB BLOOD ORDERABLES Final Resu lt Performing Organization Address [facility] Co de Phone Number [address] [address] * Rheumatoid factor (05/19/2019 1:17 PM EDT) RHEUMATOID FACTOR <10.0 0.0 - 14.0 IU/ml [facility] Blood 05/19/2019 1:17 PM EDT 05/19/2019 1:20 PM EDT us Sole Blume PA LAB BLOOD ORDERABLES Final Resu lt Performing Organization Address [facility]/ZIP Co de Phone Number [address] [address] * C-Reactive Protein (05/19/2019 1:17 PM EDT) C REACTIVE PROTEIN <0.3 0.0 - 4.0 mg/L [facility] Blood 05/19/2019 1:17 PM EDT 05/19/2019 1:20 PM EDT us Sole Blume PA LAB BLOOD ORDERABLES Final Resu lt Performing Organization Address [facility] Co de Phone Number [address] [place] [address] * TSH (05/19/2019 1:17 PM EDT) TSH 1.53 0.27 - 4.20 uIU/mL [facility] Blood 05/19/2019 1:17 PM EDT 05/19/2019 1:20 PM EDT us Sole KWONG LAB BLOOD ORDERABLES Final Resu lt [address] [address] documented in this encounter Visit Diagnoses Diagnosis Shoulder pain, unspecified chronicity, unspecified laterality- Primary Microhematuria Routine general medical examination at a health care facility documented in this encounter Care Teams Volcanology Professor Relationship Specialty Start Date End Date Vero Garcia MD [address] [place] [address] PCP - General Internal Medicine 05/07/18 01/22/25 Sofia Seals [address] [place] [address], [address] [place] [address] PCP - General Family Medicine 01/23/25 01/23/25 Pcp, Not Required [address] [place] [address] PCP - General 05/17/25 05/31/25 Sofia Seals [address] [place] [address], [address] [place] [address] PCP - General Family Medicine 06/01/25 Patsy Lee CNM [address] [place] [address], [address] [place] [address] Obstetrics and Gynecology 10/09/17 Self-Referred, Patient 10/09/17 documented as of this encounter Additional Source Comments The information contained in this document represents components of the legal health record. It is not the complete legal health record.[facility]
--- OUTSIDE RECORDS SUMMARY | 2025-07-18 13:12 | XMS_ITS | Encounter Summary ---
Author Organization [facility] Address [address] [place] [address] Phone Care Team Providers Care Rope Making Machine Operator Name Role Phone Patsy Lee CNM Unavailable [phone] Self-Referred, Patient Unavailable Unavailab Vero Moraes MD Primary Care Provider [phone] Sofia Seals Primary Care Provider Pcp, Not Required Primary Care Provider Unavaila Sofia May Primary Care Provider [phone] Encounter Details Date Type Department Care Team (Late st Contact Info) Description 09/03/2020 Procedure Pass [address] [address] Social History Tobacco Use Types Packs/Day Years [...] Description 09/22/2025 1:30 PM EST Office Visit [facility]ery [address] [place] [address] Patsy Lee CNM [address] [place] [address], [address] [place] [address] 08/13/2026 2:00 PM EDT Office Visit [address] [address] Sofia Seals [address] [place] [address], [address] [place] [address] [email or web address] documented as of this encounter Visit Diagnoses Not on filedocumented in this encounter Care Teams Rope Making Machine Operator Relationship Specialty Start Date End Date Vero Garcia MD [address] [place] [address] PCP - General Internal Medicine 05/07/18 01/22/25 Sofia Seals [address] [place] [address], [address] [place] [address] PCP - General Family Medicine 01/23/25 01/23/25 Pcp, Not Required [address] [place] [address] PCP - General 05/17/25 05/31/25 Sofia Seals [address] [place] [address], [address] [place] [address] PCP - General Family Medicine 06/01/25 Patsy Lee CNM [address] [place] [address], [address] [place] [address] Obstetrics and Gynecology 10/09/17 Self-Referred, Patient 10/09/17 documented as of this encounter Additional Source Comments The information contained in this document represents components of the legal health record. It is not the complete legal health record.[facility]
--- OUTSIDE RECORDS SUMMARY | 2025-07-18 13:12 | XMS_ITS | Encounter Summary ---
Author Organization [facility] Address [address] [place] [address] Phone Care Team Providers Care Radiation / Chemistry Technician Name Role Phone Patsy Lee CNNegrita Unavailable [phone] Self-Referred, Patient Unavailable Unavailab Vero Moraes MD Primary Care Provider Sofia Seals Primary Care Provider Pcp, Not Required Primary Care Provider Unavaila Sofia May Primary Care Provider Encounter Details Date Type Department Care Team (Late st Contact Info) Description 09/03/2020 Ancillary Orders Virtual Department [address] [place] [address] Vero Garcia MD [address] [place] [address] [email or web address] Breast screening Social History Tobacco Use Types [...] Visit [facility] [address] [place] [address] Patsy Lee CNM [address] [facility], [address] [place] [address] 08/13/2026 2:00 PM EDT Office Visit [facility] [place] [facility] [address] [place] [address] Sofia Seals [address] [facility], [address] [place] [address] [email or web address] documented as of this encounter Results [...] unspecified documented in this encounter Care Teams Radiation / Chemistry Technician Relationship Specialty Start Date End Date Vero Garcia MD [address] [place] [email or web address] PCP - General Internal Medicine 05/07/18 01/22/25 Sofia Seals [address] [place] [address], [address] [place] [address] PCP - General Family Medicine 01/23/25 01/23/25 Pcp, Not Required [address] [place] [address] PCP - General 05/17/25 05/31/25 Sofia Seals [address] [place] [address], [address] [place] [address] PCP - General Family Medicine 06/01/25 Patsy Lee CNM [address] [place] [address], [address] [place] [address] [email or web address] Obstetrics and Gynecology 10/09/17 Self-Referred, Patient 10/09/17 documented as of this encounter Additional Source Comments The information contained in this document represents components of the legal health record. It is not the complete legal health record.[facility]
--- OUTSIDE RECORDS SUMMARY | 2025-07-18 13:12 | XMS_ITS | Encounter Summary ---
Author Organization [facility] Address [address] [place] [address] [place] [address] Phone Care Team Providers Care Oral And Maxillofacial Surgery Name Role Phone Patsy Lee CNNegrita Unavailable [phone] Self-Referred, Patient Unavailable Unavailab Vero Moraes MD Primary Care Provider [phone] Sofia Seals Primary Care Provider Pcp, Not Required Primary Care Provider Unavaila ble Sofia Seals Primary Care Provider [phone] Encounter Details Date Type Department Care Team (Latest Contact Info) Description 05/07/2018 Transcribe Orders [facility] Laboratory [address] [place] [address] Sole Bunn PA [address] 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 08/13/2026 2:00 PM EDT Office Visit [facility] Family Medicine [address] [place] [address] Sofia Seals [address] [facility], [address] [place] [address] [email or web address] documented as of this encounter Results * (ABNORMAL) Urinalysis with sediment (05/07/2018 7:35 AM EDT) WBC 5-10(A) NONE SEEN /hpf [facility] RBC 3-5(A) NONE SEEN /hpf [facility] URINE EPITHELIAL 21-49(A) NONE SEEN [facility] MUCUS 2+(A) NONE SEEN /hpf [facility] BACTERIA 1+(A) NONE SEEN [facility] CRYSTALS 2+ [facility] Comment:AMORPHOUS COLOR Yellow Yellow [facility] CLARITY Clear [facility] GLUCOSE Negative Negative [facility] BILI Negative Negative [facility] KETONES Trace(A) Negative [facility] SPECIFIC GRAVITY 1.025 1.005 - 1.030 [facility] BLOOD 3+(A) Negative [facility] PH 6.0 5.0 - 8.0 [facility] Protein-UA 1+(A) Negative [facility] NITRITE Negative Negative [facility] Leukocyte esterase, ur 1+(A) Negative [facility] Urine (Urine) 05/07/2018 7:3 5 AM EDT 05/07/2018 7:38 AM EDT us Sole KWONG URINE ORDERABLES Final Result Performing Organization Address City/[facility]/ZIP Co de Phone Number [address] [address] * TSH with reflex (05/07/2018 7:35 AM EDT) TSH 1.34 0.27 - 4.20 uIU/mL [facility] Blood 05/07/2018 7:35 AM EDT 05/07/2018 7:37 AM EDT us Sole KWONG LAB BLOOD ORDERABLES Final Resu lt Performing Organization Address [facility] Co de Phone Number [address] [address] * (ABNORMAL) Lipid panel (05/07/2018 7:35 AM EDT) HDL 75 mg/dL [facility] Comment: Interpretation: Risk Level Females Decreased >55mg/dL Average 50-55 mg/dL Increased <50 mg/dL CHOLESTEROL 200 0 - 240 mg/dL [facility] TRIGLYCERIDES 109 30 - 160 mg/dL [facility] LDL 103 50 - 129 mg/dL [facility] Comment: LDL levels in terms of risk for coronary heart disease: <100 mg/dL: Optimal 100-129 mg/dL: Near or above optimal 130-159 mg/dL: Borderline high 160-189 mg/dL: High >190 mg/dL: Very High CARDIAC RISK RATIO 2.7(L) 3.3 - 4.4 C [facility] Blood 05/07/2018 7:35 AM EDT 05/07/2018 7:37 AM EDT Sole KWONG LAB BLOOD ORDERABLES Final Resu lt Performing Organization Address City/[facility]/ZIP Co de Phone Number [address] [address] * Comprehensive metabolic panel (05/07/2018 7:35 AM EDT) SODIUM 140 133 - 146 mmol/L [facility] POTASSIUM 3.8 3.3 - 5.1 mmol/L [facility] CHLORIDE 100 96 - 108 mmol/L [facility] CO2 28 21 - 35 mmol/L [facility] BUN 10 6 - 19 mg/dL [facility] CREATININE 0.50 0.5 - 1.5 mg/dL [facility] GLUCOSE 82 70 - 99 mg/dL [facility] ALBUMIN 4.4 3.9 - 4.8 g/dL [facility] TOTAL PROTEIN 7.7 6.5 - 8.0 g/dL [facility] CALCIUM 9.6 8.4 - 10.3 mg/dL [facility] ALKALINE PHOSPHATASE 52 39 - 117 U/L [facility] TOTAL BILIRUBIN 0.5 0.0 - 1.2 mg/dL [facility] AST 17 0 - 37 U/L [facility] ALT 17 0 - 40 U/L [facility] GLOBULIN 3.3 1 - 4.8 g/dL [facility] EGFR 119 >59 mL/min/1.7 3m2 [facility] Comment:If patient is black, multiply result by 1.159. Estimated glomerular filtration rate calculated using the CKD-EPI equation. ANION GAP 16 10 - 20 mmol/L [facility] Blood 05/07/2018 7:35 AM EDT 05/07/2018 7:37 AM EDT us Sole KWONG LAB BLOOD ORDERABLES Final Resu lt [facility] [address] [place] [address] * (ABNORMAL) CBC and differential (05/07/2018 7:35 AM EDT) WBC 10.08 3.40 - 11.20 K/uL [facility] RBC 4.58 3.80 - 4.80 M/uL [facility] HGB 14.4 12.0 - 15.0 g/dL [facility] HCT 43.2 36.0 - 46.0 % [facility] PLT 217 130 - 400 K/uL [facility] MCV 94.3 79.0 - 98.0 fL [facility] MCH 31.4 27.0 - 34.8 pg [facility] MCHC 33.3 31.5 - 36.0 g/dL [facility] RDW 12.4 10.8 - 14.6 % [facility] MPV 10.4 9.4 - 12.4 fl [facility] NRBC 0.00 /100 WBCs [facility] ABSOLUTE NRBC 0.00 K/uL [facility] DIFF METHOD Auto [facility] NEUTS 61.9 45.30 - 77.70 % [facility] LYMPHS 28.9 12.30 - 39.70 % [facility] MONOS 7.2 4.10 - 12.80 % [facility] EOS 1.4 0 - 7.2 % [facility] BASOS 0.3 0 - 2.80 % [facility] Granulocytes, immature (%) 0.3 0.0 - 0.9 % [facility] ABSOLUTE NEUTS 6.24 1.40 - 7.70 K/uL [facility] ABSOLUTE LYMPHS 2.91 0.60 - 3.20 K/uL [facility] ABSOLUTE MONOS 0.73(H) 0.11 - 0.59 K/uL [facility] ABSOLUTE EOS 0.14 0.01 - 0.50 K/uL [facility] ABSOLUTE BASOS 0.03 0.00 - 0.08 K/uL [facility] Granulocytes, immature 0.03 0.00 - 0.05 K/uL [facility] Blood 05/07/2018 7:35 AM EDT 05/07/2018 7:37 AM EDT us Sole KWONG LAB BLOOD ORDERABLES Final Resu lt [facility] [address] [place] [address] documented in this encounter Visit Diagnoses Diagnosis Routine general medical examination at a health care facility- Primary Migraine without status migrainosus, not intractable, unspecified migraine type Fatigue, unspecified type documented in this encounter Care Teams Oral And Maxillofacial Surgery Relationship Specialty Start Date End Date Vero Garcia MD [address] [place] [email or web address] PCP - General Internal Medicine 05/07/18 01/22/25 Sofia Seals [address] [place] [address], [address] [place] [address] [email or web address] PCP - General Family Medicine 01/23/25 01/23/25 Pcp, Not Required [address] [place] [address] PCP - General 05/17/25 05/31/25 Sofia Seals [address] [place] [address], [address] [place] [address] [email or web address] PCP - General Family Medicine 06/01/25 Patsy Lee CNM [address] [place] [address], [address] [place] [address] [email or web address] Obstetrics and Gynecology 10/09/17 Self-Referred, Patient 10/09/17 documented as of this encounter Additional Source Comments The information contained in this document represents components of the legal health record. It is not the complete legal health record.[facility]
--- OUTSIDE RECORDS SUMMARY | 2025-07-18 13:13 | XMS_ITS | Encounter Summary ---
Author Organization [facility] Address [address] [place] [address] Phone Care Team Providers Care Translation Director Name Role Phone Patsy Lee SANIYA Unavailable [phone] Self-Referred, Patient Unavailable Unavailab Vero Moraes MD Primary Care Provider [phone] Sofia Seals Primary Care Provider Pcp, Not Required Primary Care Provider Unavaila ble Sofia Seals Primary Care Provider [phone] Encounter Details Date Type Department Care Team (Late st Contact Info) Description 10/01/2023 Procedure Pass [facility], [address] [address] Social History Tobacco Use Types Packs/Day Years [...] Office Visit [facility] [address] [place] [address] [place] [address] Patsy Lee, SANIYA 22 [facility], [address] [place] [address] 08/13/2026 2:00 PM EDT Office Visit [facility] [address] [place] [address] Sofia Seals [address] [place] [address], [address] [place] [address] [email or web address] documented as of this encounter Visit Diagnoses Not on filedocumented in this encounter Care Teams Translation Director Relationship Specialty Start Date End Date Vero Garcia MD [address] [place] [address] PCP - General Internal Medicine 05/07/18 01/22/25 Sofia Seals [address] [place] [address], [address] [place] [address] PCP - General Family Medicine 01/23/25 01/23/25 Pcp, Not Required [address] [place] [address] PCP - General 05/17/25 05/31/25 Sofia Seals [address] [place] [address], [address] [place] [address] [email or web address] PCP - General Family Medicine 06/01/25 Patsy Lee CNM [address] [place] [address], [facility] [address] [place] [address] [email or web address] Obstetrics and Gynecology 10/09/17 Self-Referred, Patient 10/09/17 documented as of this encounter Additional Source Comments The information contained in this document represents components of the legal health record. It is not the complete legal health record.[facility]
== END 2025-07-18 11:49 | disposition home or self-care (01) ==
LOC: HO.XRAY 11:48
PROVIDERS: PCP Student in an Organized Health Care Education/Training Program; Visit Provider Student in an Organized Health Care Education/Training Program
DX: M20.11 Hallux valgus (acquired), right foot (principal); M20.12 Hallux valgus (acquired), left foot; M20.41 Other hammer toe(s) (acquired), right foot; M20.42 Other hammer toe(s) (acquired), left foot; M79.671 Pain in right foot; M79.672 Pain in left foot
CPT/HCPCS: 73630

== ENCOUNTER → 2025-07-18 12:22 | Outpatient (BNV) | payer OTHER, SELFPAY | PROVIDERS: PCP Student in an Organized Health Care Education/Training Program; Visit Provider Radiology Diagnostic Radiology | DX: M20.11 Hallux valgus (acquired), right foot (principal); M20.12 Hallux valgus (acquired), left foot; M19.071 Primary osteoarthritis, right ankle and foot; M19.072 Primary osteoarthritis, left ankle and foot | CPT/HCPCS: 73630 ==